=== PATIENT | male | born 1960 | race Caucasian/White ===

== ENCOUNTER → 2018-11-22 10:27 | Outpatient (CLI) | payer OTHER, SELFPAY ==
--- NOTE | 2018-11-22 | DI.RAD.S_ITS ---
PROCEDURE: XR TIBIA FUBULA RT 2V INDICATIONS: PAIN ANTERIOR PROXIMAL TIBIA-POSSIBLE OLD SHRAPNEL TECHNIQUE: 2 views of the tibia and fibula were acquired. COMPARISON: None. FINDINGS: Bones: No fractures or dislocations. No suspicious bony lesions. Soft tissues: No suspicious soft tissue calcifications or masses. IMPRESSION: No prior trauma or foreign body seen. Dictated by: Kevin Villeda M.D. on 11/22/2018 at 12:58 Approved by: Kevin Villeda M.D. on 11/22/2018 at 12:59
== END ==
PROVIDERS: PCP Family Medicine; Visit Provider Physician Assistant
DX: M79.661 Pain in right lower leg (principal)
CPT/HCPCS: 73590

== ENCOUNTER → 2021-01-20 15:01 | Outpatient (CLI) | payer BC, SELFPAY ==
[2021-01-20] MEDS: COVID-19 VACC #1, MRNA(MOD) 100 MCG/0.5 ML VIAL IM (15:09)
== END ==
PROVIDERS: PCP Student in an Organized Health Care Education/Training Program; Visit Provider Internal Medicine
DX: Z23 Encounter for immunization (principal)
CPT/HCPCS: 0011A; 91301

== ENCOUNTER → 2021-02-17 12:56 | Outpatient (CLI) | payer BC, SELFPAY ==
[2021-02-17] MEDS: COVID-19 VACC #2, MRNA(MOD) 100 MCG/0.5 ML VIAL IM (13:00)
== END ==
PROVIDERS: PCP Student in an Organized Health Care Education/Training Program; Visit Provider Internal Medicine
DX: Z23 Encounter for immunization (principal)
CPT/HCPCS: 0012A; 91301

== ENCOUNTER → 2022-12-25 13:49 | Outpatient (CLI) | payer BC, SELFPAY ==
--- NOTE | 2022-12-25 13:50 | DI.RAD.S_ITS ---
PROCEDURE: XR KNEE LT 3V INDICATIONS: Assess baseline knee status. Bilateral pain w/o trauma TECHNIQUE: 3 views of the knee were acquired. COMPARISON: None. FINDINGS: Bones: No fractures or dislocations. No suspicious bony lesions. Soft tissues: No joint effusion. No suspicious soft tissue calcifications. IMPRESSION: No acute fracture. No osseous lesion. If symptoms and/or clinical suspicion for pathology persist, further assessment with repeat, or advanced imaging (e.g., CT, MRI, or bone scan) may be helpful for further assessment. Dictated by: Madeleine Keys M.D. on 12/25/2022 at 15:09 Transcribed by: SINGH on 12/25/2022 at 15:09 Approved by: Madeleine Keys M.D. on 12/25/2022 at 16:28
--- NOTE | 2022-12-25 13:50 | DI.RAD.S_ITS ---
PROCEDURE: XR KNEE RT 3V INDICATIONS: Assess baseline knee status. Bilateral pain w/o trauma TECHNIQUE: 3 views of the knee were acquired. COMPARISON: None. FINDINGS: Bones: No fractures or dislocations. No suspicious bony lesions. Mild tricompartmental periarticular osteophyte formation. Soft tissues: No joint effusion. No suspicious soft tissue calcifications. IMPRESSION: Osteoarthritis. No acute fracture. No osseous lesion. If symptoms and/or clinical suspicion for pathology persist, further assessment with repeat, or advanced imaging (e.g., CT, MRI, or bone scan) may be helpful for further assessment. Dictated by: Madeleine Keys M.D. on 12/25/2022 at 15:09 Transcribed by: SINGH on 12/25/2022 at 15:09 Approved by: Madeleine Keys M.D. on 12/25/2022 at 16:28
== END ==
PROVIDERS: PCP Student in an Organized Health Care Education/Training Program; Referring Provider Student in an Organized Health Care Education/Training Program; Visit Provider Student in an Organized Health Care Education/Training Program
DX: M17.11 Unilateral primary osteoarthritis, right knee (principal); M25.561 Pain in right knee; M25.562 Pain in left knee
CPT/HCPCS: 73562

== ENCOUNTER 2024-04-25 12:54 | Day surgery (SDC) | payer BC, SELFPAY ==
[2024-04-25] VITALS (8 sets, daily range): BP systolic 84–119; BP diastolic 52–77; PULSE 79–88; RESP 10–16; TEMP 36.2–36.8; O2SAT 94–100
--- NOTE | 2024-04-25 | PATH_ITS ---
[facility] Accession Number: [id number] No. of containers..02 Tissue . 01 Material submitted: . PART A: colon - ASCENDING COLON MASS PART B: colon - TRANSVERSE POLYP . 01 Diagnosis: Part A: ASCENDING COLON MASS: 1. Colonic tissue with invasive adenocarcinoma, moderately differentiated. 2. No lymphovascular or perineural invasion identified. See comment. . Specimen Comments: These results were called to Dr. Santiago by Dr. Candelario on 04/28/2024 at 1115. The case has also been reviewed by Dr. Rose Simmons, who concurs with the diagnosis. . Immunohistochemical staining for markers of microsatellite instability (MSI) will be performed, and the results will be reported as an addendum. . Part B: TRANSVERSE POLYP: Tubular adenoma. [facility] 04/28/2024 1133 Local . 01 Electronically signed: . Bj Candelario MD, Pathologist NPI- [id number] . 01 Gross description: . A. Received in formalin, labeled with two identifiers and ascending colon mass, are four villalta soft tissue fragments measuring 0.4-0.8 cm in greatest dimension. Submitted intact cassette A1. . B. Received in formalin, labeled with two identifiers and transverse polyp, are two villalta soft tissue fragments measuring 0.6-1.1 cm in greatest dimension with the largest fragment bisected. Submitted entirely in cassette B1. ([id number]) /Andie 04/28/2024 1133 Local . 01 Pathologist provided ICD-10: C18.2, D12.3 . 01 CPT . 161863, 428411, N59221, F38287 Specimen Comment: A courtesy copy of this report has been sent to [phone] Performed at: [address] [facility] [address] [address] [address] [facility], [place], [place] [id number] MD Bj Candelario MD Phone: [phone]
[2024-04-25] MEDS: LACTATED RINGERS 1,000 ML 42 ML IV (13:24)
--- NOTE | 2024-04-25 13:46 | P.HP_ITS ---
History of Present Illness History of Present Illness Date Patient Seen: 04/25/24 Time Patient Seen: 13:46 [place] [facility] [place] 64-year-old man here for diagnostic colonoscopy for positive Cologuard test. No abdominal concerns today. Family history of colon cancer in his sister. 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) Smoking Status: Never smoker second hand exposure: No alcohol intake: never substance use type: does not use Meds Home Medications and Allergies Home Medications Medication Instructions Recorded Confirmed Type aspirin 81 mg tablet,delayed 81 mg PO DAILY 04/06/20 04/25/24 History release (Adult Low Dose Aspirin) ezetimibe 10 mg tablet (Zetia) 10 mg PO DAILY #90 tabs 11/15/23 04/25/24 Rx metoprolol succinate 50 mg 50 mg PO DAILY #90 tabs 11/15/23 04/25/24 Rx tablet,extended release 24 hr pitavastatin calcium 4 mg tablet 4 mg PO DAILY #90 tabs 11/15/23 04/25/24 Rx (Livalo) Allergies Allergy/AdvReac Type Severity Reaction Status Date / Time choline fenofibrate AdvReac Mild feel Verified 04/25/24 09:16 nauseated sick and low energy Exam Vital Signs (past 8 hours): - 04/25/24 13:14 Temperature 97.3 F L Pulse Rate 88 Respiratory Rate 16 Blood Pressure 113/73 Pulse Oximetry 100 Oxygen Delivery Method Room Air Oxygen Delivery Method Room Air Narrative Exam Narrative: General adult man alert oriented no acute distress Chest nonlabored respiration Extremities warm well perfused Assessment & Plan Assessment and plan (1) Positive colorectal cancer screening using Cologuard test: Status: Acute Assessment & Plan narrative: Diagnostic colonoscopy indicated. Technical details were discussed. Risks, benefits, alternatives explained. Risks including but not limited to myocardial infarction, aspiration, bleeding, pain, missed lesion, incomplete examination, need for further radiographic studies, intestinal injury, and need for major abdominal surgery were discussed. All questions were answered to their satisfaction, and they are in agreement with this plan. Time-Based Coding :: [TOTAL MINUTES] spent with patient and on the chart (including review of chart, obtaining history, exam, reviewing outside data, placing orders, documenting exam and treatment plan, and counseling patient) on [DATE].
--- NOTE | 2024-04-25 14:32 | DI.CT.S_ITS ---
PROCEDURE: CT CHEST ABD PEL W CON INDICATIONS: colonoscopy mass TECHNIQUE: After the administration of intravenous contrast, 5 mm thick sections acquired from the lung apices to the symphysis. 5 mm coronal and sagittal reformats were performed, with additional 7 mm MIP reformats through the lungs. For radiation dose reduction, the following was used: automated exposure control, adjustment of mA and/or kV according to patient size. COMPARISON: None. FINDINGS: Image quality: Excellent. CHEST: Lower Neck: No enlarged lymph nodes. Thyroid: No thyroid nodules which require sonographic follow up, per consensus guidelines. Axillae: No enlarged lymph nodes. Chest Wall: Post median sternotomy. Lungs and Pleura: No pneumothorax or pleural effusions. No consolidation or suspicious nodules. Heart: Heart size is normal. No pericardial effusion. Thoracic Vessels: The aorta and pulmonary arteries demonstrate normal size. Mediastinum and Monique: No enlarged lymph nodes. Esophagus: No wall thickening. No hiatal hernia. Asymmetric elevation of the left hemidiaphragm. ABDOMEN: Liver: No solid mass. Gallbladder: No radiopaque gallstones or wall thickening. Biliary ducts: No biliary dilation. Pancreas: No ductal dilation. Spleen: Size is within normal limits. Adrenal Glands: No adrenal nodules. Kidneys and Ureters: No hydronephrosis. No solid mass. No complex renal cystic lesion which requires follow up. Stomach and Bowel: Circumferential mass at the splenic flexure measuring approximately 6 cm in length, (3/22). No significant upstream bowel dilatation. Small pericolonic lymph nodes, (2/56). Normal appendix. No small bowel obstruction. Stomach is not distended. Peritoneum: No abnormal intraperitoneal fluid. No free air. Ventral Wall: No significant ventral hernia. Abdominal Nodes: No retroperitoneal or mesenteric adenopathy by size criteria. Vessels: Aorta and inferior vena cava are normal in size. PELVIS: Pelvic Organs: Unremarkable. Bladder: No bladder wall thickening, accounting for underdistention. Pelvic Nodes: No enlarged lymph nodes. Miscellaneous: No inguinal hernias are seen. Bones: No aggressive osseous abnormality. IMPRESSION: 1. Splenic flexure colonic mass measuring approximately 6 cm in length. 2. No bowel obstruction demonstrated. 3. Small pericolonic lymph nodes in the left upper quadrant. 4. No focal hepatic lesion. Dictated by: Shahid Hwang M.D. on 04/25/2024 at 17:25 Approved by: Shahid Hwang M.D. on 04/25/2024 at 17:34
--- NOTE | 2024-04-25 14:44 | PM.OP.COLON ---
Operative Date/Time/Diagnoses Date of procedure: 04/25/24 Time of procedure: 14:44 Pre-op diagnosis: Positive Cologuard Post-op diagnosis: other (Colon mass) Procedure & Clinicians Study performed: Diagnostic colonoscopy Same procedure as scheduled: Yes Indications: 64-year-old man no previous colonoscopy with a positive Cologuard test here for diagnostic colonoscopy. Surgeon: Jose Santiago Procedure Notes Procedure in detail: The history and physical was performed/updated and the patient is ASA class is 2. The procedure was discussed in detail with the patient. Potential risks complications including infection, bleeding, missed diagnosis, perforation, need for surgery, and were explained. Their questions were answered and informed consent was obtained. Patient was brought to the procedure room and placed standard monitoring equipment. The patient's vital signs were monitored continuously throughout the entire procedure. Prior to starting time-out was performed. The patient was placed in the left lateral recumbent position. Procedural sedation was administered by anesthesia. Examination began with a thorough inspection of the perianal area there was no evidence of fissures, fistulae, external hemorrhoids or cutaneous malignancy. The colonoscopy scope was then placed into the anal canal and was advanced forward. Within the ascending colon there was a circumferential friable near obstructing mass appearance is consistent with colonic adenocarcinoma. The lesion was tattooed and then portion of the lesion was removed using the hot snare. Unable to advance the scope successfully beyond the lesion. The scope was then slowly withdrawn. Within the transverse colon there was a 8 mm pedunculated polyp which was removed with hot snare. Specimen(s): other (Ascending colon mass, transverse colon polyp) Impression: Colon cancer Post-procedure Plan for aftercare: Discussion to follow in regards to colon cancer workup and treatment Disposition: same day surgery
[2024-04-25 15:41] LABS: Add Manual Diff / Slide Review NO; Basophils Absolute Auto 0 /uL (0-100); Basophils Percent Auto 0.8 % (0-2); Eosinophils Absolute Auto 100 /uL (0-450); Eosinophils Percent Auto 2.3 % (2-4); Hematocrit 41.1 % (41-53); Hemoglobin 14.3 g/dL (13.5-17.5); Lymphocytes Absolute Auto 1000 /uL (1100-4500); Lymphocytes Percent Auto 22.2 % (25-40); Mean Corpuscular HGB Conc 34.7 % (30-36); Mean Corpuscular Hemoglobin 31.3 PG (26-34); Mean Corpuscular Volume 90.1 fL (80-100); Monocytes Absolute Auto 400 /uL (0-900); Monocytes Percent Auto 9.5 % (3-14); Neutrophils Absolute Auto 2900 /uL (1500-7000); Neutrophils Percent Auto 65.2 % (50-75); Platelet Count 171 X10^3/uL (150-400); Red Blood Cell Count 4.57 X10^6/uL (4.5-5.9); White Blood Cell Count 4.5 X10^3/uL (4.5-11.0)
[2024-04-25 15:50] LABS: BUN Creatinine Ratio 11.3 (6-22); Blood Urea Nitrogen 9 mg/dL (9-20); Calcium 8.8 mg/dL (8.4-10.2); Carbon Dioxide 23 mmol/L (22-32); Chloride 108 mmol/L (98-107); Estimated Glomerular Filt Rate > 60 mL/min (>60); Glucose 88 mg/dL (80-110); HEMOLYSIS < 15 (0-50); Potassium 3.9 mmol/L (3.4-5.1); Sodium 138 mmol/L (137-145)
== END 2024-04-25 16:25 | disposition home or self-care (01) ==
PROVIDERS: Surgery; PCP Family Medicine; Referring Provider Surgery; Visit Provider Surgery
PROC: 0DJD8ZZ Inspection of Lower Intestinal Tract, Via Natural or Artificial Opening Endoscopic (ICD-10-PCS; CPT 45378; principal; 2024-04-25 13:45)
DX: C18.2 Malignant neoplasm of ascending colon (principal); D12.3 Benign neoplasm of transverse colon
CPT/HCPCS: 45381; 45385; 36415; 71260; 74177; 80048; 82378; 85025; J2704; Q9967

== ENCOUNTER 2024-05-07 07:12 | Inpatient (IN) | payer BC, SELFPAY ==
[2024-05-06 11:48] VITALS: BMI 29.8
[2024-05-07] VITALS (14 sets, daily range): BP systolic 93–125; BP diastolic 56–79; PULSE 78–98; RESP 10–18; TEMP 36.1–36.8; O2SAT 94–100; BMI 27.8; BMI 28.1
--- NOTE | 2024-05-07 | PATH_ITS ---
[facility] Accession Number: [id number] No. of containers..01 Tissue . 01 Material submitted: . colon - TRANSVERSE COLON . 01 Clinical history: . STITCH SANDRA PROXIMAL COLON . 01 Diagnosis: TRANSVERSE COLON, SEGMENTAL RESECTION: Invasive adenocarcinoma; see Cancer Case Summary. Additional segment of colon with focal erosion. . . CASE SUMMARY - COLON AND RECTUM - RESECTION Specimen Procedure: Transverse colectomy. Tumor Tumor site: Colon, not otherwise specified. Histologic type: Adenocarcinoma. Histologic grade: G2, moderately differentiated. Tumor size: 5.9 cm in greatest dimension. Multiple primary sites: Not applicable. Tumor extent: Invades through muscularis propria into pericolonic tissue. Macroscopic tumor perforation: Not identified. Lymphatic or vascular invasion: Not identified. Perineural invasion: Not identified. Tumor budding score: Low (0-4). Treatment effect: No known presurgical therapy. Margins Margin status for invasive carcinoma: All margins negative for invasive carcinoma. Margin status for non-invasive tumor: All margins negative for dysplasia. Regional lymph nodes Regional lymph node status: Regional lymph nodes present. All regional lymph nodes negative for tumor Number of lymph nodes with tumor: 0. Number of lymph node examined: 25. Tumor deposits: Not identified. Distant metastasis: Not applicable. pTNM classification (AJCC 8th Edition) pT category: pT3 pN category: pN0 Additional findings: None identified. Special studies: Immunohistochemical stains for DNA mismatch repair proteins performed on the prior biopsy specimen ([id number]), with intact nuclear expression of MLH-1, MSH-2, MSH-6, and PMS-2. [facility] 05/09/2024 1746 Local . 01 Electronically signed: . Luther Huber MD, PhD, Pathologist NPI- [id number] . 01 Gross description: . Received in formalin with two patient identifiers and transverse colon, are two segments of colon, the first is oriented with a suture designating proximal per the requisition, and measures 26.7 cm in length and averages 3.5 cm in diameter, with attached fat and mesentery extending out to 38.1 cm. The serosa is villalta with a acosta area of discoloration consistent with tattoo ink measuring 3.5 x 3.5 cm. A roughened area adjacent to the presumed tattoo ink measures 4.2 x 3.6 cm. The proximal margin is inked blue, the distal margin is inked black, the mesenteric margin is inked green, and the roughened area of serosa is inked orange. The lumen contains a small amount of hemorrhagic material, and a sessile lesion measures 5.9 x 5.5 x 2.1 cm, and is located 3.6 cm from the nearest distal margin. The lesion extends through the wall with minimal extension into the adjacent fat and grossly approaches the orange-inked serosa. The adjacent tattoo-inked area has no lesions identified. The remaining mucosa is villalta and velvety with no additional lesions identified and slightly attenuated folds. The david average 0.2 cm thick with no diverticula identified. . The separate unoriented segment of colon measures 11.4 cm in length by 4.2 cm in diameter with a small amount of attached fat extending out to 3.2 cm. The serosa is red-brown and smooth with no roughened areas identified. The staple lines are differentially inked green and yellow. Minimal luminal contents are identified. The mucosa is acosta-villalta and velvety with grossly attenuated folds. An area of wall is thin and translucent measuring 1.9 x 1.6 cm with no perforation or lesions identified. The david range from less than 0.1 to 0.2 cm thick. Palpation of the pericolonic fat reveals 47 villalta lymph node candidates ranging from 0.1 to 0.9 cm in greatest dimension. . Warp Tester sections are submitted as follows: A1: Oriented fragment proximal margin en face. A2: Oriented fragment distal margin en face. A3-A4: Mass deepest extension. A5: Mass to serosa. A6: Mass to normal. A7: Tattoo inked area. A8: Normal oriented section. A9: Second fragment, passenger service representative margins en face. A10: Second fragment translucent wall. A11: Normal second fragment. A12: Two differentially inked bisected lymph node candidates. A13: Two differentially inked bisected lymph node candidates. A14: Two differentially inked bisected lymph node candidates. A15: Single bisected lymph node candidate. A16: Five intact lymph node candidates. A17: Five intact lymph node candidates. A18: Four intact lymph node candidates. A19: Five intact lymph node candidates. A20: Six intact lymph node candidates. A21: Five intact lymph node candidates. A22: Six intact lymph node candidates. A23: Four intact lymph node candidates. ([id number]) /MRV 05/08/2024 1718 Local . 01 Pathologist provided ICD-10: C18.9 . 01 CPT . 634700 Specimen Comment: A courtesy copy of this report has been sent to [phone] Performed at: [address] [facility] [address], [place], [place] [id number] MD Bj Candelario MD Phone: [phone]
--- NOTE | 2024-05-07 08:16 | SUR.OPER ---
Lithotomy on padded OR bed. [place] Pad Positioner under torso. Head on pillow, arms padded and tucked at sides. Legs secured in padded yellow fins stirrups.
[2024-05-07] MEDS: LACTATED RINGERS 1,000 ML 21 ML IV ×3 (08:18→12:23)
--- NOTE | 2024-05-07 08:27 | PM.PREOP ---
Pre-operative Note Interval Note History & Physical reviewed/Exam performed by Physician: Yes Changes to H&P: No
[2024-05-07] MEDS: PIPERACILLIN/TAZO 4.5 GM in SODIUM CHLORIDE 0.9% 100 ML IV (09:05)
[2024-05-07] MEDS: BUPIVACAINE 0.25% (PF) VIAL 30 ML INJ (09:18)
[2024-05-07] MEDS: TRANEXAMIC ACID 1,000 MG VIAL 2000 MG INJ (10:38)
[2024-05-07] MEDS: PIPERACILLIN/TAZO 3.375 GM in SODIUM CHLORIDE 0.9% 100 ML IV (11:50)
--- NOTE | 2024-05-07 13:44 | P.OP_ITS ---
Operative Date/Time/Diagnoses Date of procedure: 05/07/24 Time of procedure: 13:52 Pre-op diagnosis: Colon cancer Post-op diagnosis: same Procedure & Clinicians Procedure: Laparoscopic assisted left extended hemicolectomy Open mobilization of splenic flexure Implantation of Phasix mesh for fascial reinforcement of abdominal wall Modifier 22 for extensive intra loop and intra abdominal adhesions. Same procedure as scheduled: Yes Indications: 64-year-old man found to have a large near obstructing colon cancer within his transverse colon. Staging demonstrates no evidence of metastatic disease tumor appears to be at the splenic flexure. Surgeon: Jose Santiago Laundry Equipment Operator: Long De La Garza Anesthesia Type: General Operative Notes Findings: Large tumor within the distal 1/3 of the transverse colon. Extensive intra-abdominal and interloop adhesions Negative leak test Specimen(s): other (Transverse colon. Stitch espinoza the proximal portion) Prosthetic devices, grafts, tissues, transplants, or devices: Phasix mesh 15 cm Estimated Blood Loss (mL): 300 Procedure in detail: Patient was brought to the operating room placed supine on the table. Bilateral lower extremity compression devices were applied. General anesthesia was induced and he was intubated with an endotracheal tube. He was then prepped and draped in sterile fashion and a Sultana catheter was sterilely placed. Time-out was performed. He received 4.5 g of Zosyn prior to skin incision. A infraumbilical incision was made the fascia was grasped elevated sharply incised and the abdomen was entered atraumatically. Pneumoperitoneum was established. Additional working ports were placed in the right lower quadrant right upper quadrant. General inspection of the abdomen was made, no carcinomoatosis or hepatic lesions. The descending colon was mobilized medially by incising the white line of Toldt using electrocautery. Within the left upper quadrant there were extensive adhesions near the splenic flexure. A laparoscopic adhesiolysis was performed. The gastrocolic ligament was divided entering the lesser sac, mobilizing the transverse colon inferiorly. The right colon was then mobilized medially by incising the white line of Toldt. At this point no further la paroscopic mobilization was possible and we proceeded with a upper midline incision. A self retaining retractor was placed. The hepatic flexure was mobilized. The sweep of the duodenum was identified and kept posterior out of harms way. The level of the splenic flexure was exceptionally high and there were extensive adhesions between the transverse colon to the decending colon the small bowel and the spleen. Using sharp dissection an adhesiolysis was performed. Ultimately the splenic flexture was entirely mobilized the splenocolic, splenorenal and gastrocolic ligaments all divided. The tail of the pancreas was observe and kept posterior out of harms way. The tumor was clearly identified quite palpable and marked with tattoo ink and within the distal transverse colon. We divided the transverse colon at least 5 cm from the tumor. A window within the mesentery was made and then the colon was divided using the EN stapler 75 mm blue load. The middle colic pedicle was identified and it was traced down to the superior mesenteric artery. The middle colic vessels were divided near its takeoff from the SMA. Two 0 silk sutures were used to ligate the pedicle and then it was divided using electrocautery. We continued the division of the transverse mesentery using the LigaSure. There was approximately 200 ml of venous bleeding from the transverse colon mesentery which was ultimately controlled with suture ligation. The distal colon was divided in the same fashion on the descending colon. We trimmed back the descending colon further to get a well perfused segment. Ultimately we had two well perfused ends of colon and we formed a [id number]-of-ches anastomosis functional end to end. The staple lines were excised then crotch stitch with silk suture was placed. The limbs were then joined in using a 3rd staple load. The anastomosis was widely patent without tension and well perfused. The common opening was then closed in running fashion using 3-0 PDS suture. The staple line was then imbricated using interrupted silk suture. The mesenteric defect was closed with Vicryl suture in running manner. We then performed a leak test. The anastomosis was submerged beneath saline and air was insufflated from the rectum and this demonstrated good filling of the colon no evidence of leak. The 11 mm trocar sites were closed from within the abdomen using 0 Vicryl suture in [id number]. Given the contaminated nature of the case and the length of the fascial incision he was deemed to be at significant-risk of ventral hernia formation. We therefore implanted a 15 cm piece of Phasix mesh on the anterior fasica for reinforcement of the abdominal wall. The anterior sheath was then cleared of the subcutaneous tissue and the Phasix mesh was secured using Tisseel. Subcutaneous tissue was reapproximated with Vicryl and skin closed with running Monocryl followed by Dermabond. Sponge and instrument count was correct. Bilateral TAP block was performed by anesthesia. Patient was extubated and was transferred to recovery room in stable condition. Complications: none Post-operative Condition: stable Disposition: Acute Care
[2024-05-07] MEDS: DEXTROSE 5%-0.45% NS 1,000 ML 100 ML IV ×2 (14:53→23:47)
--- NOTE | 2024-05-07 15:30 | PT.IIE ---
Current Diagnoses Malignant neoplasm of colon, unspecified (05/07/24) Surgery Performed Operation Date: 05/07/24 08:45 Actual Procedures p Laparoscopic Colectomy CONVERTED TO OPEN COLECTOMY - Jose Santiago MD Surgical History (Last Updated 05/06/24 @ 11:58 by Lilli Hunt RN) History of breast surgery History of three vessel coronary artery bypass (~1997) Hx of colonoscopy (04/25/24) Hx of left mastectomy (1979) Hx of vasectomy (1996) Medical History (Last Reviewed 04/25/24 @ 13:47 by Jose Santiago MD) Coronary artery disease (1997) Migraines (Unknown) Myocardial infarction (~1997) Physical Therapy Inpatient Evaluation/Re-Eval M1 PT/OT-IP Prior Functional Status Start: 05/07/24 16:41 Freq: NEEDED Status: Active Protocol: Document 05/07/24 15:30 AB (Rec: 05/07/24 17:09 [id number]) Medical Review Prior Functional Status Medical History Reviewed Yes Communication able to make needs known Mobility and Gait pt stated that he is independent with all mobilities and ambulation without AD Social History Household Members spouse,children Living Arrangements House Number of Floors (Floors) Two Floors Number of Stairs To Enter/Railing? 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 M2 PT-IP Current Condition Start: 05/07/24 16:41 Freq: NEEDED Status: Active Protocol: Document 05/07/24 15:30 AB (Rec: 05/07/24 17:09 AB [id number]) Physical Therapy Current Condition Current Condition Evaluation Date 05/07/24 Treatment Diagnosis colon CA s/p hemicolectomy; difficulty in walking Onset Date 05/07/24 M3 PT-IP Subjective Start: 05/07/24 16:41 Freq: NEEDED Status: Active Protocol: Document 05/07/24 15:30 AB (Rec: 05/07/24 17:09 AB [id number]) Subjective Physical Therapy Visit Type Type Re-Evaluation Visit Start Time 15:30 Visit Stop Time 16:15 Number of SYRUP 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 HELPER Visits 0 Physical Therapy Visit Comments Patient Comments agreeable to do PT Therapy Pain Assessment Pain When Pain Assessed At Rest Pain Present Pain Present Pain Reported Location Abdomen Intensity 4 Scale Used Numeric (0 - 10) Pain Management Techniques Distraction,Modification of Treatment,Re-positioning, Timing of Activity with Medications M4 PT-IP Mobility and Gait Start: 05/07/24 16:41 Freq: NEEDED Status: Active Protocol: Document 05/07/24 15:30 AB (Rec: 05/07/24 17:09 AB [id number]) PT-Bed Mobility Assessment Rolling Type of Rolling Log Rolling Level of Assist Contact Guard Assistance Supine to Sit Supine to Sit Contact Guard Assistance Sit to Supine Sit to Supine Contact Guard Assistance PT-Transfer Assessment Sit to and From Stand Sit to and from Stand Minimal Assistance,1 Person Assistance,Use of Upper Extremities Equipment Transfer Assistive Device Gait Belt,Front Wheeled Walker Orthotic/Prosthetic Devices or Brace: No Comments Mobility Comments pt supine in bed and agreeable to do PT. spouse in room with pt. obtained PLOF and home set up from pt. post-op handout provided to pt and educated on abdominal precautions and log roll bed mobility. BP in supine: 109/ 69 O2 sat with .5 O2 supplement: 97 % at RA 97% AZ: 78. pt completed log roll supine to sit CGA and cues. able to sit on EOb SBA. BP checked: 124/72. no c/o dizziness/ lightheadedness/nausea. pt completed sit to stand min A and ambulated in room ~ 20 ft using FWW min A and cues. presents with slow paced gait with decrease LE elevation and stride and with increase UE use on FWW. pt with c/o nausea towards the end of ambulation and pt instructed to walk to the EOB and towards HOB. pt sat on the bed. c/o increase nausea. BP checked: 85/56. call light pushed to alert nurse. pt completed sit to supine CGA and cues. positioned pt on the bed. BP rechecked: 98/64. NAC came in after ~ 5 min and informed to let the nurse know that pt is orthostatic. Rechecked pt's BP after ~ 2 min: 97/63. call light and table placed within reach. left pt with nurse. informed spouse to try to borrow a FWW for pt. spouse understood and agreed and will borrow one from [employer]. Gait Assessment Gait Gait Assistance Required: Minimum Assistance Distance (Feet) 20 Able to Maintain Weight Bearing Status Yes During Gait Assistive Devices Assistive Device Gait Belt,Front Wheeled Walker Orthotic/Prosthetic Devices or Brace: No Gait Deviations General Gait Pattern Decreased Stride Length, Decreased Feet Clearance Factors Limiting Gait Function Factors Limiting Gait Function Decreased Activity Tolerance, Decreased Strength,Difficulty Following Directions,Limited Range of Motion,Pain,Poor Balance,Poor Safety Awareness PT-Balance Assessment Sitting Balance and Reactions Static Sitting Balance Ability Good Dynamic Sitting Balance Ability Good Standing Balance and Reactions Static Standing Balance Ability Fair Dynamic Standing Balance Ability Fair Device Used FWW M5 PT-IP Objective Assessments Start: 05/07/24 16:41 Freq: NEEDED Status: Active Protocol: Document 05/07/24 15:30 AB (Rec: 05/07/24 17:09 AB [id number]) Orientation Orientation/Cognition Level of Alertness Alert Orientation Name,Situation Safety Awareness Decreased Safety Awareness Memory Description No Deficits Noted Gross Range of Motion Lower Extremity ROM Assessment Within Functional Limits Strength Lower Extremity Strength Assessment Within Functional Limits Sensation Assessment Sensation Gross Sensation WNL Muscle Tone Muscle Tone WNL Yes M6 PT-IP Treatment Start: 05/07/24 16:41 Freq: NEEDED Status: Active Protocol: Document 05/07/24 15:30 AB (Rec: 05/07/24 17:09 AB [id number]) Physical Therapy Treatment Education Education Provided Precautions,Weight Bearing Status,Post-Op Packet,Safety M7 PT-IP Assessment and Plan Start: 05/07/24 16:41 Freq: NEEDED Status: Active Protocol: Document 05/07/24 15:30 AB (Rec: 05/07/24 17:09 AB [id number]) PT Summary Assessment and Plan Potential Rehabilitation Potential Fair Status of Condition at Evaluation Evolving Summary Impairments Pain,ROM,Strength,Balance, Coordination,Sensation,Tone, Cognition,Bed Mobility, Transfers,Gait,Activity Tolerance Assessment Summary pt is a 64 y/o M with colon CA and underwent hemicolectomy POD 0. pt has abdominal precautions. pt needing min A with mobility using FWW and has decrease activity tolerance at this time with decrease in BP after ambulation. pt plans to go home and spouse to assist him. maverick conduct caregiver training when appropriate. will continue to assess. Goals Bed Mobility Goal Independent Transfer Goal Independent,Front Wheeled Walker Gait Goal Independent,Front Wheel Walker Gait Distance 200 Other Goals improve transfers/ambulation using LRAD/ without AD ~ 300 ft mod I up/down 1 step FWW/without AD mod I up/down 13 steps L rail descendind mod I. Days to Meet Goals 10 Frequency of Treatment Frequency Of Treatment Once a Day Treatment Plan Physical Therapy Treatment Plan Bed Mobility Training,Transfer Training,Gait Training, Therapeutic Exercise,Balance Retraining,Post Op Education, Discharge Planning,Hot or Cold Pack,Neuromuscular Re-ed, Coordination Retraining,Manual Therapy Precautions Abdominal Surgery Precautions Log Roll,Lifting Restrictions, Gait Belt above Incisional Area Recommendations To Nursing Amount of Assist Needed 1 Person Assist Discharge Recommendations PT Discharge Recommendations Home with 14/05 Assist Available,Home Health Equipment Needed for Home Before FWW Discharge Transportation Needs at Discharge Private Vehicle,Wheelchair/ Cabulance
--- NOTE | 2024-05-07 16:17 | OT.IPNOTE ---
Checked on pt for OT eval. Pt just finished doing PT eval and wanting to do OT eval tomorrow as too tired.
[2024-05-07] MEDS: OXYCODONE IR 5 MG TABLET PO (18:15)
[2024-05-07] MEDS: CELECOXIB 200 MG CAPSULE PO (20:13)
[2024-05-08] VITALS (16 sets, daily range): BP systolic 100–130; BP diastolic 63–76; PULSE 77–103; RESP 16–18; TEMP 36.4–37; O2SAT 93–99
[2024-05-08] MEDS: OXYCODONE IR 5 MG TABLET PO ×5 (02:00→21:45)
[2024-05-08] MEDS: ACETAMINOPHEN 325 MG TABLET 1000 MG PO (02:01)
[2024-05-08 06:38] LABS: Add Manual Diff / Slide Review NO; Basophils Absolute Auto 0 /uL (0-100); Eosinophils Absolute Auto 0 /uL (0-450); Lymphocytes Absolute Auto 600 /uL (1100-4500); Lymphocytes Percent Auto 4.5 % (25-40); Mean Corpuscular HGB Conc 34.2 % (30-36); Mean Corpuscular Volume 90.7 fL (80-100); Monocytes Absolute Auto 1100 /uL (0-900); Monocytes Percent Auto 8.1 % (3-14); Neutrophils Absolute Auto 11900 /uL (1500-7000); Neutrophils Percent Auto 87.4 % (50-75); Platelet Count 170 X10^3/uL (150-400); Red Blood Cell Count 3.85 X10^6/uL (4.5-5.9); Red Cell Distribution Width 13.9 % (11.6-14.8); White Blood Cell Count 13.7 X10^3/uL (4.5-11.0)
[2024-05-08] MEDS: SODIUM CHLORIDE 0.9% FLUSH 10 ML IV ×3 (06:38→21:45)
[2024-05-08] MEDS: HYDROMORPHONE 0.5 MG INJ IV (06:39)
[2024-05-08 06:40] LABS: BUN Creatinine Ratio 11.6 (6-22); Blood Urea Nitrogen 8 mg/dL (9-20); Calcium 8.2 mg/dL (8.4-10.2); Carbon Dioxide 20 mmol/L (22-32); Chloride 109 mmol/L (98-107); Estimated Glomerular Filt Rate > 60 mL/min (>60); Glucose 204 mg/dL (80-110); HEMOLYSIS 26 (0-50); Potassium 4.3 mmol/L (3.4-5.1); Sodium 133 mmol/L (137-145)
--- NOTE | 2024-05-08 08:50 | PT.IPTN ---
Current Diagnoses Malignant neoplasm of colon, unspecified (05/07/24) Surgery Performed Operation Date: 05/07/24 08:45 Actual Procedures p Laparoscopic Colectomy CONVERTED TO OPEN COLECTOMY - Jose Santiago MD Physical Therapy Treatment Note M2 PT-IP Current Condition Start: 05/07/24 16:41 Freq: NEEDED Status: Active Protocol: Document 05/07/24 15:30 AB (Rec: 05/07/24 17:09 AB [id number]) Physical Therapy Current Condition Current Condition Evaluation Date 05/07/24 Treatment Diagnosis colon CA s/p hemicolectomy; difficulty in walking Onset Date 05/07/24 M3 PT-IP Subjective Start: 05/07/24 16:41 Freq: NEEDED Status: Active Protocol: Document 05/08/24 09:24 TS (Rec: 05/08/24 09:39 TS [id number]) Subjective Physical Therapy Visit Type Type Treatment Note Visit Start Time 08:50 Visit Stop Time 09:20 Notes Spouse present Number of RECORDAK OPERATOR Visits 1 Physical Therapy Visit Comments Patient Comments Pt found resting in bed, reports pain is 3/10 in bed, has no nausea, is agreeable to PT. Therapy Pain Assessment Pain When Pain Assessed At Rest Pain Present Pain Present Pain Reported Location Abdomen Intensity 3 Scale Used Numeric (0 - 10) Pain Management Techniques Distraction,Modification of Treatment,Re-positioning, Timing of Activity with Medications M4 PT-IP Mobility and Gait Start: 05/07/24 16:41 Freq: NEEDED Status: Active Protocol: Document 05/08/24 09:24 TS (Rec: 05/08/24 09:39 TS [id number]) PT-Bed Mobility Assessment Rolling Level of Assist Standby Assistance Supine to Sit Supine to Sit Standby Assistance Sit to Supine Sit to Supine Minimal Assistance Scooting Scooting to Edge of Bed Minimal Assistance PT-Transfer Assessment Sit to and From Stand Sit to and from Stand Minimal Assistance,1 Person Assistance,Use of Upper Extremities Equipment Transfer Assistive Device Gait Belt,Front Wheeled Walker Orthotic/Prosthetic Devices or Brace: No Comments Mobility Comments Bp in supine 112/62. Supine to sit SBA with HOB elevated 60D . Pt sat EOB ~3mins, BP 107/71 , pt denied dizziness. STS with FWW SBA, pt has good standing balance. BP in standing 89/60, pt continues to deny dizziness. He ambulated ~25'SBA with FWW with a slow step thru gait. Sit to supine into bed Karen for LE's and with HOB elevated 60D. Pt was left in bed, all needs met. Gait Assessment Gait Gait Assistance Required: Standby Assistance Distance (Feet) 25 Able to Maintain Weight Bearing Status Yes During Gait Assistive Devices Assistive Device Gait Belt,Front Wheeled Walker Gait Deviations General Gait Pattern Decreased Stride Length, Decreased Feet Clearance Factors Limiting Gait Function Factors Limiting Gait Function Decreased Activity Tolerance, Decreased Strength,Difficulty Following Directions,Limited Range of Motion,Pain,Poor Balance,Poor Safety Awareness Comments Gait Comments See mobility comments PT-Balance Assessment Sitting Balance and Reactions Static Sitting Balance Ability Good Dynamic Sitting Balance Ability Good Standing Balance and Reactions Static Standing Balance Ability Fair Dynamic Standing Balance Ability Fair Device Used FWW M5 PT-IP Objective Assessments Start: 05/07/24 16:41 Freq: NEEDED Status: Active Protocol: Document 05/07/24 15:30 AB (Rec: 05/07/24 17:09 AB [id number]) Orientation Orientation/Cognition Level of Alertness Alert Orientation Name,Situation Safety Awareness Decreased Safety Awareness Memory Description No Deficits Noted Gross Range of Motion Lower Extremity ROM Assessment Within Functional Limits Strength Lower Extremity Strength Assessment Within Functional Limits Sensation Assessment Sensation Gross Sensation WNL Muscle Tone Muscle Tone WNL Yes M6 PT-IP Treatment Start: 05/07/24 16:41 Freq: NEEDED Status: Active Protocol: Document 05/08/24 09:24 TS (Rec: 05/08/24 09:39 TS [id number]) Physical Therapy Treatment Education Education Provided Precautions,Weight Bearing Status,Post-Op Packet,Safety M7 PT-IP Assessment and Plan Start: 05/07/24 16:41 Freq: NEEDED Status: Active Protocol: Document 05/08/24 09:24 TS (Rec: 05/08/24 09:39 TS [id number]) PT Summary Assessment and Plan Potential Rehabilitation Potential Fair Summary Impairments Pain,ROM,Strength,Balance, Coordination,Sensation,Tone, Cognition,Bed Mobility, Transfers,Gait,Activity Tolerance Progress Towards Goals Progressing Toward Goals Assessment Summary Ivania is making some progress with his mobility. He requires Karen for LE's into bed, SBA for other bed mobility with HOB elevated. He progressed his gait to SBA ~ 25' with FWW. He continues to be orthostatic but denies symptoms. He had no nausea and pain was more tolerable. PT is recommending home with 24/7 assist. Goals Bed Mobility Goal Independent Transfer Goal Independent,Front Wheeled Walker Gait Goal Independent,Front Wheel Walker Gait Distance 200 Other Goals improve transfers/ambulation using LRAD/ without AD ~ 300 ft mod I up/down 1 step FWW/without AD mod I up/down 13 steps L rail descendind mod I. Days to Meet Goals 10 Frequency of Treatment Frequency Of Treatment Once a Day Treatment Plan Physical Therapy Treatment Plan Bed Mobility Training,Transfer Training,Gait Training, Therapeutic Exercise,Balance Retraining,Post Op Education, Discharge Planning,Hot or Cold Pack,Neuromuscular Re-ed, Coordination Retraining,Manual Therapy Precautions Abdominal Surgery Precautions Log Roll,Lifting Restrictions, Gait Belt above Incisional Area Recommendations To Nursing Amount of Assist Needed 1 Person Assist Discharge Recommendations PT Discharge Recommendations Home with 24/7 Assist Available,Home Health Equipment Needed for Home Before FWW Discharge Transportation Needs at Discharge Private Vehicle
[2024-05-08] MEDS: DOCUSATE 100 MG CAPSULE PO ×2 (08:56→21:45)
[2024-05-08] MEDS: CELECOXIB 200 MG CAPSULE PO ×2 (08:56→21:45)
[2024-05-08] MEDS: ENOXAPARIN 40 MG/0.4 ML SYRINGE SUBCUT (08:56)
--- NOTE | 2024-05-08 09:18 | P.PN_ITS ---
Subjective Subjective Date Patient Seen: 05/08/24 Time Patient Seen: 09:18 Interval history: No acute overnight events. Mobilizing with physical therapy. Increased incisional pain. Tolerating full liquid diet. Exam Vital Signs (past 8 hours): - 05/08/24 02:00 05/08/24 05:00 05/08/24 06:00 Temperature 98 F 97.9 F Pulse Rate 97 H 86 Respiratory Rate 18 18 Blood Pressure 105/64 109/69 Pulse Oximetry 97 96 93 Oxygen Delivery Method Oximask Oxygen Flow Rate 2 2 Fraction of Inspired Oxygen 05/08/24 08:00 05/08/24 08:18 Temperature 97.7 F Pulse Rate 93 H Respiratory Rate 16 Blood Pressure 106/63 Pulse Oximetry 94 96 Oxygen Delivery Method Nasal Cannula Oxygen Flow Rate 0 2 Fraction of Inspired Oxygen 28 Fraction of Inspired Oxygen 28 SaO2/FiO2 Ratio 342 Oxygen Delivery Method Nasal Cannula Oxygen Flow Rate 2 Narrative Exam Narrative: General adult man alert oriented no acute distress Chest nonlabored respiration Objective Labs 05/08/24 05:46 05/08/24 05:46 Labs: Laboratory Results - last 24 hr 05/08/24 05:46 WBC 13.7 H RBC 3.85 L Hgb 12.0 L Hct 35.0 L MCV 90.7 MCH 31.0 MCHC 34.2 RDW 13.9 Plt Count 170 Neut % (Auto) 87.4 H Lymph % (Auto) 4.5 L [place] % (Auto) 8.1 Eos % (Auto) 0.0 L Baso % (Auto) 0.0 Neut # (Auto) 84825 H Lymph # (Auto) 600 L [place] # (Auto) 1100 H Eos # (Auto) 0 Baso # (Auto) 0 Sodium 133 L Potassium 4.3 Chloride 109 H Carbon Dioxide 20 L BUN 8 L Creatinine 0.69 Estimated GFR > 60 BUN/Creatinine Ratio 11.6 Glucose 204 H Calcium 8.2 L PFSH Medical History (Updated 05/06/24 @ 16:14 by Jose Santiago MD) Migraines (Unknown) Coronary artery disease (1997) Myocardial infarction (~1997) Surgical History (Updated 05/06/24 @ 11:58 by Lilli Hunt RN) Hx of colonoscopy (04/25/24) Hx of left mastectomy (1979) History of breast surgery Hx of vasectomy (1996) History of three vessel coronary artery bypass (~1997) Family History Father Stroke Myocardial infarction Mother Alzheimer's disease Sister Diabetes mellitus Sister Diabetes mellitus Sister Diabetes mellitus Grandmother Alzheimer's disease Grandmother Alzheimer's disease Social History household members: spouse and children 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
[2024-05-08] MEDS: METOPROLOL ER 50 MG TABLET 25 MG PO (09:37)
--- NOTE | 2024-05-08 11:05 | OT.IP.EVAL ---
Current Diagnoses Malignant neoplasm of colon, unspecified (05/07/24) Surgery Performed Operation Date: 05/07/24 08:45 Actual Procedures p Laparoscopic Colectomy CONVERTED TO OPEN COLECTOMY - Jose Santiago MD Past Medical History (Last Reviewed 04/25/24 @ 13:47 by Jose Santiago MD) Coronary artery disease (1997) Migraines (Unknown) Myocardial infarction (~1997) Surgical History (Last Updated 05/06/24 @ 11:58 by Lilli Hunt RN) History of breast surgery History of three vessel coronary artery bypass (~1997) Hx of colonoscopy (04/25/24) Hx of left mastectomy (1979) Hx of vasectomy (1996) Occupational Therapy Inpatient Evaluation/Re-Eval M1 PT/OT-IP Prior Functional Status Start: 05/07/24 16:41 Freq: NEEDED Status: Active Protocol: Document 05/08/24 13:04 CGR (Rec: 05/08/24 13:23 CGR [id number]) Medical Review Prior Functional Status Medical History Reviewed Yes Communication able to make needs known Mobility and Gait pt stated that he is independent with all mobilities and ambulation without AD Activities of Daily Living and IADL's Pt states he is IND in all ADLS Social History Household Members spouse,children Living Arrangements House Number of Floors (Floors) Two Floors Number of Stairs To Enter/Railing? 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 OT-IP Current Condition Start: 05/08/24 13:03 Freq: Status: Active Protocol: Document 05/08/24 13:04 CGR (Rec: 05/08/24 13:23 CGR [id number]) Occupational Therapy Current Condition Current Condition Evaluation Date 05/08/24 Treatment Diagnosis colon cancer, s/p colectomy Diagnosis Onset Date 05/07/24 Post Operative Precautions Abdominal Surgery Precautions Log Roll,Lifting Restrictions, Gait Belt above Incisional Area M3 OT- IP Subjective and Pain Start: 05/08/24 13:03 Freq: Status: Active Protocol: Document 05/08/24 13:04 CGR (Rec: 05/08/24 13:23 CGR [id number]) OT- Subjective Occupational Therapy Visit Type Type Initial Evaluation Visit Start Time 10:24 Visit Stop Time 11:05 Notes Pt's present for part of session. OT Pain Assessment Pain When Pain Assessed During Mobility Pain Present Pain Present Pain Reported Location Abdomen Intensity 3 Scale Used Numeric (0 - 10) Pain Behaviors Guarding Management Techniques Distraction,Modification of Treatment,Re-positioning, Timing of Activity with Medications M4 OT- IP ADL's Start: 05/08/24 13:03 Freq: Status: Active Protocol: Document 05/08/24 13:04 CGR (Rec: 05/08/24 13:23 CGR [id number]) OT [id number] General Evaluation Self-Feeding Ability Independent Areas Needing Assistance Drinking From Cup/Glass Comments OT Self-Feeding Comments pt on clear liquids OT ADL-Grooming General Evaluation Grooming Ability Independent Areas Needing Assistance Retrieving/Set-up of Grooming Items,Face Washing Comments OT Grooming Comments seated in chair. OT ADL-Oral Care General Eval Oral Care Ability Independent Areas of Assistance Brushing Teeth,Retrieving/Set- Up of Items Comments Oral Care Comments seated in chair OT ADL-Dressing Comments OT Dressing Comments declined to perform with OT, states that his will assist as needed. OT ADL-Toileting Comments OT Toileting Comments Not performed but discussed pt 's concerns with not having the need to urinate yet after the removal of the vargas . OT ADL-Bathing Comments OT Bathing Comments not performed M5 OT- IP IADL's Start: 05/08/24 13:03 Freq: Status: Active Protocol: Document 05/08/24 13:04 CGR (Rec: 05/08/24 13:23 CGR [id number]) OT-Instrumental Activities of Daily Living Deficits IADL Deficits Identified No Deficits Home Safety Awareness Awareness of Need for Assistance at Home Good Awareness Ability to Problem Solve Emergency Able to Problem Solve Situations Medication Management Medication Management No Deficits Identified Money Management Money Management No Deficits Identified Meal Preparation Meal Preparation Caregiver Provides Assist Roll Finisher Roll Finisher Caregiver Provides Assist Driving Driving Comments Pt was an active ambulette driver at baseline. M6 OT- IP Functional Cognition Start: 05/08/24 13:03 Freq: Status: Active Protocol: Document 05/08/24 13:04 CGR (Rec: 05/08/24 13:23 CGR [id number]) Cognitive Factors Limiting Selfcare Function Cognitive Ability Level of Alertness Alert Patient Orientation Name,Age,Birthday,Month,Date, Year,Day of Week,Place, Situation Attention Span Ability Capable of Focused Attention, Capable of Sustained Attention OT- Vision and Hearing OT- Hearing Assessment OT- Hearing Assessment WFL OT- Vision Assessment Visual Acuity Glasses All The Time,Glasses For Reading Visual Attentiveness WFL Occular Pursuits WFL Visual Convergence WFL M7 OT- IP Mobility and Balance Start: 05/08/24 13:03 Freq: Status: Active Protocol: Document 05/08/24 13:04 CGR (Rec: 05/08/24 13:23 CGR [id number]) OT- Bed Mobility Assessment Rolling Type of Rolling Log Rolling,Roll to Left Level of Assistance Standby Assistance Supine to Sit Supine to Sit Assist Standby Assistance Scooting Scooting to Edge of Bed Independent OT-Transfer Assessment Sit to and From Stand Sit to and from Stand Standby Assistance Transfers Transfer Ability Standby Assistance Technique Transfer Destination Bed,Chair Transfer Technique Stand Step Pivot Devices Transfer Assistive Devices Gait Belt,Front Wheeled Walker Comments Mobility Comments BP increased from 115 systolic to 122 systolic with sitting EOB to sittign in chair. Limited mobility today d/t severely orthostatic with P.T. this am. OT- Gait Assessment Comments Gait Ability Comments Limited mobility today d/t severely orthostatic with P.T. this am. OT- Balance Assessment Sitting Balance and Reactions Static Sitting Balance Ability Good Dynamic Sitting Balance Ability Good M8 OT- IP Objective Assessments Start: 05/08/24 13:03 Freq: Status: Active Protocol: Document 05/08/24 13:04 CGR (Rec: 05/08/24 13:23 CGR [id number]) OT Gross Range of Motion Upper Extremity Range of Motion Assessment Within Functional Limits OT Strength Upper Extremity Strength Assessment Within Functional Limits Comments Strength Comments 5/5 throughout, shlds not fully tested d/t abdominal precautions. OT- Coordination Assessment Upper Extremity Finger to Nose Test Within Functional Limits Finger Tapping Test Within Functional Limits OT-Muscle Tone Assessment Muscle Tone WNL Yes OT Sensation Assessment Edema Edema Absent M9 OT- IP Assessment and Plan Start: 05/08/24 13:03 Freq: Status: Active Protocol: Document 05/08/24 13:04 CGR (Rec: 05/08/24 13:23 CGR [id number]) OT Summary Assessment and Plan Potential Rehabilitation Potential Excellent Analytic Complexity at Evaluation Low Summary OT Impairments Pain,Functional Mobility, Grooming,Dressing,Toileting, Bathing,Toilet Transfers, Shower Transfers Progress Towards Goals Progressing Toward Goals Assessment Summary Pt presents as a low complexity evaluation s/p admit for colectomy. Pt with orthostatic hypotention this AM so mobility was limited in todays session although BP improved with limited movement with OT. Pt transferred over to the chair and performed limited ADLs seated in chair. Pt was educated on abdominal precautions and rationale for them and discussed home set up for safety. Pt is likely to be ready for d/c home when medically stable without orthostaic hypotension with family support. Goals Grooming Goal Independent Dressing Goal Independent Toileting Goal Independent Bathing Goal Independent Toilet Transfer Goal Independent Shower Transfer Goal Independent Days to Meet Goals 3 Frequency of Treatment Frequency Of Treatment Once a Day Treatment Plan OT Treatment Plan ADL Training,Functional Mobility,Patient/Family Education,Discharge Planning Other Treatment Recommendations and Next Shower, bathroom activites Treatment Focus Discharge Recommendations OT Discharge Recommendations Home with Assistance Home Equipment Needs RAMESH HUERTA in the shower Transportation Needs at Discharge Private Vehicle
--- NOTE | 2024-05-08 12:28 | CM.DANOTE ---
Patient is a 64 yo male who was admitted INPT Status on 05/07/24 for Lap hemicolectomy for near obstructing colon tumor. Pt has [employer] for insurance and his PCP is Keturah Souza. EMR was reviewed. Per Surgeon, pt tolerated procedure well and pain seems controlled and to work with therapies today for possible d/c home today vs tomorrow. Per PT/OT, pt made improvements and some bp issues but recommending home with assist and now likely would not need/qualify for HH. SW met bedside briefly with pt and explained role and he confirms he lives in [place] with his and family and is active and independent at baseline and does not use DME for ambulation and still drives. 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 Pt confirms that spouse is picking up a loaner FWW for increased assist at home while he is healing. Pt does not anticipate any further discharge planning needs at this time and spouse plans to provide transport at d/c. OLIVERIO Walker Discharge Planning/Care Management CM Discharge Assessment Start: 05/08/24 12:27 Freq: Status: Active Protocol: Document 05/08/24 12:27 BF (Rec: 05/08/24 12:28 BF [id number]) Discharge Planning Assessment Assigned Pharmacy Cashier OLIVERIO Galvez DPOA/Assigned Designee Name spouse Severino Advance Directives? No Advance Directives on File No History Provided By Patient,Medical Record Has Patient been admitted in last 30 No days? Prior Living Arrangements House Household Members spouse,children Type of transporation used prior to Drives own vehicle admit Independent with ADL's Yes Is patient alert and oriented? Yes Caregiver for Another No DME Already Rented / Owned FWW / Walker Comment spouse picking up a walker for discharge Barriers to Discharge No Discharge Plan Home Transportation Arrangement spouse Referrals Initiated None needed Whiteboard Updated in Patient Room with Yes name and ext. # of Pharmacy Cashier Review Status In Process Please Provide Date Initial DC 05/08/24 Assessment Was Performed Next Review Type Continued Stay Review Pre-Anesthesia Assessment Start: 05/06/24 11:48 Freq: Status: Complete Protocol: Document 05/06/24 11:48 CAB (Rec: 05/06/24 12:33 CAB [id number]) Pre-Anesthesia Assessment Patient Information Reviewed Via Phone Assessment Assessment Completed With Patient Primary Care Provider Keturah Souza Seen Specialist in Last 12 Months Yes Specialist Seen General surgeon Primary Language Nigerian Management Analyst Required No Height 167.64 cm Weight 83.915 kg Body Mass Index (BMI) 29.8 Hearing Ability Normal Visual Assist Glasses Dentition Type Teeth, Natural Present Barriers to Learning None Hx Anesthesia Reactions No Hx Family Anesthesia Reaction No Hx Malignant Hyperthermia No Hx Blood Transfusions No Hx Blood Transfusion Reaction No Anesthesia Review Requested No Special Education Paraprofessional No alcohol intake never Smoking Status Never smoker Substance Use Type does not use History of Falling (Recent or History of No ) Patient is completely paralyzed or No completely immobile Mental Status Oriented to own ability Is patient on oxygen? No Does patient have CRISTINA/SOB No Hx Sleep Apnea No CPAP/BIPAP use not prescribed Currently Taking a Beta Ramona Yes: Metoprolol Can You Climb a Flight of Stairs Without No SOB Hx Chest Pain Yes: Related to [facility] , nothing since Hx SOB No Hx Syncope or Dizziness No Anti-Coagulant Therapy No Has a Clinical Laboratory Medical Director Yes: Last visit 2017-has not followed up since Clinical Laboratory Medical Director name Dr. Escobar Cardiac Testing No Hx Pacemaker/ICD No Pacemaker Rep Required? No Cardiac Clearance Received No Diet Type At Home Regular Gastrointestinal Symptoms Abdominal Pain Bladder Pattern Nocturia Urinary Catheter Present No Hx Urinary Self Catheterization No Diabetes No Hx Drug Resistant Organism No Presence of External or Internal Medical No Devices Marital Status Lives With spouse Current Living Arrangements House Number of Floors (Floors) Two Floors Support System Spouse Does the Patient Have Assistance After Yes Surgery Patient Discharge Plan Description Return Home Comment Pt advised sat Feels Safe in Current Environment Yes Been Physically Hurt or Threatened By a No Person in Current Environment Do you have thoughts of harming yourself None or others? Are you currently considering suicide? No Do you have a plan to hurt yourself or No Plan others? Do You Have Any Spiritual Beliefs That No May Affect Your HC Choices? Do You Have Any Cultural Practices That No May Affect Your HC Choices? Comment Restorationist Who Can We Speak to About Patient's Care Family, friends Identifying Code for Release of Patient Declines to issue Information Health Care Proxy/Next of Kin severino () Health Care Proxy Emergency Contact Name severino () Emergency Contact Advance Directives? No Power of Slitter Cut Off Operator No PAC Instructions No ETOH/petroleum product on skin DOS,NPO,Sturdy shoes/ comfortable clothes,Do not bring valuables and remove jewelry
[2024-05-08] MEDS: ONDANSETRON 4 MG/2 ML INJ IV (13:07)
[2024-05-08] MEDS: SIMETHICONE 80 MG TABLET PO (21:45)
[2024-05-09] VITALS (12 sets, daily range): BP systolic 99–125; BP diastolic 61–70; PULSE 85–95; RESP 16–18; TEMP 36.5–36.9; O2SAT 92–99
[2024-05-09] MEDS: HYDROMORPHONE 0.5 MG INJ IV ×2 (00:11→14:39)
[2024-05-09] MEDS: SODIUM CHLORIDE 0.9% FLUSH 10 ML IV ×3 (00:12→20:25)
[2024-05-09] MEDS: OXYCODONE IR 5 MG TABLET PO ×3 (03:11→16:57)
[2024-05-09 07:00] LABS: Add Manual Diff / Slide Review NO; Basophils Absolute Auto 0 /uL (0-100); Basophils Percent Auto 0.1 % (0-2); Eosinophils Absolute Auto 0 /uL (0-450); Eosinophils Percent Auto 0.1 % (2-4); Hematocrit 30.9 % (41-53); Hemoglobin 10.7 g/dL (13.5-17.5); Lymphocytes Absolute Auto 1000 /uL (1100-4500); Lymphocytes Percent Auto 8.1 % (25-40); Mean Corpuscular HGB Conc 34.7 % (30-36); Mean Corpuscular Volume 89.4 fL (80-100); Monocytes Absolute Auto 900 /uL (0-900); Monocytes Percent Auto 7.4 % (3-14); Neutrophils Absolute Auto 10700 /uL (1500-7000); Neutrophils Percent Auto 84.3 % (50-75); Platelet Count 183 X10^3/uL (150-400); Red Blood Cell Count 3.46 X10^6/uL (4.5-5.9); Red Cell Distribution Width 14.4 % (11.6-14.8); White Blood Cell Count 12.7 X10^3/uL (4.5-11.0)
[2024-05-09 07:13] LABS: BUN Creatinine Ratio 16.3 (6-22); Blood Urea Nitrogen 13 mg/dL (9-20); Calcium 8.3 mg/dL (8.4-10.2); Carbon Dioxide 25 mmol/L (22-32); Chloride 106 mmol/L (98-107); Estimated Glomerular Filt Rate > 60 mL/min (>60); Glucose 106 mg/dL (80-110); HEMOLYSIS < 15 (0-50); Potassium 3.8 mmol/L (3.4-5.1); Sodium 136 mmol/L (137-145)
--- NOTE | 2024-05-09 08:56 | OT.IPNOTE ---
Pt states has no OT needs at this time and that his to assist, therefore discharge pt from OT services.
[2024-05-09] MEDS: CELECOXIB 200 MG CAPSULE PO ×2 (09:47→20:25)
[2024-05-09] MEDS: METOPROLOL ER 50 MG TABLET 25 MG PO (09:47)
[2024-05-09] MEDS: CALCIUM CARBONATE 500 MG TAB 1000 MG PO (09:47)
[2024-05-09] MEDS: ENOXAPARIN 40 MG/0.4 ML SYRINGE SUBCUT (09:48)
[2024-05-09] MEDS: DOCUSATE 100 MG CAPSULE PO ×2 (09:48→20:25)
--- NOTE | 2024-05-09 10:16 | CM.DPC ---
DCP Continued Reviewed EMR and team rounds for pt?s medical status. No new discharge needs identified at this time. Plan: Anticipating dc with spouse when medically stable, possibly today. CM Team will continue to follow for coordination of discharge plans. JOSE Giraldo
--- NOTE | 2024-05-09 10:38 | PT.IPTN ---
Current Diagnoses Malignant neoplasm of colon, unspecified (05/07/24) Surgery Performed Operation Date: 05/07/24 08:45 Actual Procedures p Laparoscopic Colectomy CONVERTED TO OPEN COLECTOMY - Jose Santiago MD Physical Therapy Treatment Note M2 PT-IP Current Condition Start: 05/07/24 16:41 Freq: NEEDED Status: Active Protocol: Document 05/07/24 15:30 AB (Rec: 05/07/24 17:09 AB [id number]) Physical Therapy Current Condition Current Condition Evaluation Date 05/07/24 Treatment Diagnosis colon CA s/p hemicolectomy; difficulty in walking Onset Date 05/07/24 M3 PT-IP Subjective Start: 05/07/24 16:41 Freq: NEEDED Status: Active Protocol: Document 05/09/24 11:02 TS (Rec: 05/09/24 11:13 TS [id number]) Subjective Physical Therapy Visit Type Type Treatment Note Visit Start Time 10:38 Visit Stop Time 11:01 Notes Caregiver training Number of PAINTER HELPER Visits 2 Physical Therapy Visit Comments Patient Comments Pt found resting in chair, reports he is eating some, he is agreeable to PT. Therapy Pain Assessment Pain When Pain Assessed At Rest Pain Present Pain Present Pain Reported Location Abdomen Intensity 3 Scale Used Hassan-Bain (Faces) Pain Management Techniques Distraction,Modification of Treatment,Re-positioning, Timing of Activity with Medications M4 PT-IP Mobility and Gait Start: 05/07/24 16:41 Freq: NEEDED Status: Active Protocol: Document 05/09/24 11:02 TS (Rec: 05/09/24 11:13 TS [id number]) PT-Transfer Assessment Sit to and From Stand Sit to and from Stand Standby Assistance Equipment Transfer Assistive Device Gait Belt,Front Wheeled Walker Orthotic/Prosthetic Devices or Brace: No Comments Mobility Comments STS from chair SBA with FWW, pt is slow to stand due to pain. He ambulated ~150'SBA with FWW, requires multiple standing rest breaks due to pain. He performed steps x1 on platform step with FWW CGA ascending/descending. He performed stairs x3 with single rail and CGA from spouse. He ambulated back to room, was left in chair, spouse in room, all needs met. Gait Assessment Gait Gait Assistance Required: Standby Assistance Distance (Feet) 150 Able to Maintain Weight Bearing Status Yes During Gait Assistive Devices Assistive Device Gait Belt,Front Wheeled Walker Orthotic/Prosthetic Devices or Brace: No Gait Deviations General Gait Pattern Decreased Stride Length, Decreased Feet Clearance Factors Limiting Gait Function Factors Limiting Gait Function Decreased Activity Tolerance, Decreased Strength,Limited Range of Motion,Pain,Poor Balance Comments Gait Comments See mobility comments Stair Climbing Assessment Evaluation Level of Assist On Stairs Contact Guard Assistance,1 Person Assistance Devices Stair Climbing Assistive Devices Front Wheel Walker,Right Railing Technique/Endurance Stair Climbing Direction Ascend and Descend Stair Climbing Technique Step Over Step,Step to Step Number of Steps Climbed 4 Comments Stair Climbing Comments See mobility comments PT-Balance Assessment Sitting Balance and Reactions Static Sitting Balance Ability Good Dynamic Sitting Balance Ability Good Standing Balance and Reactions Static Standing Balance Ability Fair Dynamic Standing Balance Ability Fair Device Used FWW M5 PT-IP Objective Assessments Start: 05/07/24 16:41 Freq: NEEDED Status: Active Protocol: Document 05/07/24 15:30 AB (Rec: 05/07/24 17:09 AB [id number]) Orientation Orientation/Cognition Level of Alertness Alert Orientation Name,Situation Safety Awareness Decreased Safety Awareness Memory Description No Deficits Noted Gross Range of Motion Lower Extremity ROM Assessment Within Functional Limits Strength Lower Extremity Strength Assessment Within Functional Limits Sensation Assessment Sensation Gross Sensation WNL Muscle Tone Muscle Tone WNL Yes M6 PT-IP Treatment Start: 05/07/24 16:41 Freq: NEEDED Status: Active Protocol: Document 05/09/24 11:02 TS (Rec: 05/09/24 11:13 TS [id number]) Physical Therapy Treatment Education Education Provided Precautions,Weight Bearing Status,Post-Op Packet,Safety M7 PT-IP Assessment and Plan Start: 05/07/24 16:41 Freq: NEEDED Status: Active Protocol: Document 05/09/24 11:02 TS (Rec: 05/09/24 11:13 TS [id number]) PT Summary Assessment and Plan Potential Rehabilitation Potential Fair Summary Impairments Pain,ROM,Strength,Balance, Coordination,Sensation,Tone, Cognition,Bed Mobility, Transfers,Gait,Activity Tolerance Progress Towards Goals Progressing Toward Goals Assessment Summary Ivania is progressing with his mobility. He progressed his gait to ~150'SBA with FWW. He performed stairs x1 with FWW and x3 with single rail. He requires frequent rest breaks in standing due to pain. Spouse was instructed in STS, gait and stairs. PT is recommending home with 24/7 assist. Goals Bed Mobility Goal Independent Transfer Goal Independent,Front Wheeled Walker Gait Goal Independent,Front Wheel Walker Gait Distance 200 Other Goals improve transfers/ambulation using LRAD/ without AD ~ 300 ft mod I up/down 1 step FWW/without AD mod I up/down 13 steps L rail descendind mod I. Days to Meet Goals 10 Frequency of Treatment Frequency Of Treatment Once a Day Treatment Plan Physical Therapy Treatment Plan Bed Mobility Training,Transfer Training,Gait Training, Therapeutic Exercise,Balance Retraining,Post Op Education, Discharge Planning,Hot or Cold Pack,Neuromuscular Re-ed, Coordination Retraining,Manual Therapy Precautions Abdominal Surgery Precautions Log Roll,Lifting Restrictions, Gait Belt above Incisional Area Recommendations To Nursing Amount of Assist Needed 1 Person Assist Discharge Recommendations PT Discharge Recommendations Home with 24/7 Assist Available,Home Health Equipment Needed for Home Before FWW Discharge Transportation Needs at Discharge Private Vehicle
--- NOTE | 2024-05-09 12:03 | DIET.CONS ---
Dietary Consultation Note Admission Date: 05/07/2024 07:12 Assessment: 64 y M admitted for hemicolectomy. Nutrition screened for low MNA. Met w/ pt at bedside who had breakfast tray in front of him, had 1 slice of white toast so far, reports experiencing some abd discomfort and had not had BM. Before surgery, appetite was normal with usual po intakes, protein at meal times (i.e. eggs, tilley for breakfast) and had no symptoms. Nutrition focused physical exam completed with no significant findings. Assessed: temples, clavicle region, interosseous, buccal, orbital. Ht: 167.64 cm Wt: 79.2 kg BMI: 28.1 UBW: 83.915 kg on 04/25/24 (-5.6% weight loss in 2 weeks, severe) Last BM: 05/07/24 (05/07/24 14:14) MNA: 10 Narendra Score: 19 Diet: 05/08/24 Lunch Regular [General (Regular) Diet] Diet Modifications: protein supplement with each meal Food Texture: Level 7 - Regular Liquid Consistency: Level 0 - Thin Nutrition Percent Meal Consumed 10% 05/08/24 19:00 Percent Meal Consumed 100% 05/08/24 18:00 Percent Meal Consumed 75% 05/07/24 21:42 Percent Meal Consumed 50% 05/07/24 18:00 Labs: RBC 3.46 X10^6/uL (4.5-5.9) L 05/09/24 06:36 Hgb 10.7 g/dL (13.5-17.5) L 05/09/24 06:36 Hct 30.9 % (41-53) L 05/09/24 06:36 Creatinine 0.80 mg/dL (0.66-1.25) 05/09/24 06:36 Nutrition Diagnosis: Unintended weight loss r/t increased nutrient needs aeb 5.6% weight loss in 2 weeks Interventions: 1. Continue ONS BID-TID as tolerated to support adequate po intakes Monitoring/Evaluations: po intakes Electronically Signed by: Maureen Howell 05/09/24 12:03 Clinical [address] [address]
--- NOTE | 2024-05-09 20:19 | PM.PNPO.1 ---
Subjective Subjective Date Patient Seen: 05/09/24 Time Patient Seen: 20:19 Interval history: Decreasing incisional pain. Positive flatus and BM. Exam Vital Signs (past 8 hours): - 05/09/24 13:00 05/09/24 16:00 05/09/24 17:00 Temperature 97.8 F Pulse Rate 91 H Respiratory Rate 16 Blood Pressure 125/68 Pulse Oximetry 99 98 99 Oxygen Delivery Method Room Air Room Air Fraction of Inspired Oxygen 28 SaO2/FiO2 Ratio 342 Oxygen Delivery Method Room Air Oxygen Flow Rate 0 Narrative Exam Narrative: General adult man alert oriented no acute distress Abdomen soft appropriately tender to palpation. Objective Labs 05/09/24 06:36 05/09/24 06:36 Labs: Laboratory Results - last 24 hr 05/09/24 06:36 WBC 12.7 H RBC 3.46 L Hgb 10.7 L Hct 30.9 L MCV 89.4 MCH 31.0 MCHC 34.7 RDW 14.4 Plt Count 183 Neut % (Auto) 84.3 H Lymph % (Auto) 8.1 L Hayes % (Auto) 7.4 Eos % (Auto) 0.1 L Baso % (Auto) 0.1 Neut # (Auto) 76455 H Lymph # (Auto) 1000 L Hayes # (Auto) 900 Eos # (Auto) 0 Baso # (Auto) 0 Sodium 136 L Potassium 3.8 Chloride 106 Carbon Dioxide 25 BUN 13 Creatinine 0.80 Estimated GFR > 60 BUN/Creatinine Ratio 16.3 Glucose 106 Calcium 8.3 L PFSH Medical History (Updated 05/06/24 @ 16:14 by Jose Santiago MD) Migraines (Unknown) Coronary artery disease (1997) Myocardial infarction (~1997) Surgical History (Updated 05/06/24 @ 11:58 by Lilli Hunt RN) Hx of colonoscopy (04/25/24) Hx of left mastectomy (1979) History of breast surgery Hx of vasectomy (1996) History of three vessel coronary artery bypass (~1997) Family History Father Stroke Myocardial infarction Mother Alzheimer's disease Sister Diabetes mellitus Sister Diabetes mellitus Sister Diabetes mellitus Grandmother Alzheimer's disease Grandmother Alzheimer's disease Social History household members: spouse and children 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 Postoperative plan: routine post-op care Postoperative plan narrative: Anticipate discharge home tomorrow Quality VTE Deep Vein Thrombosis/Pulmonary Embolism Present on Admission: No
--- NOTE | 2024-05-09 21:46 | PC.NURSE ---
Patient is alert and oriented. Breath sounds diminished but CTA with RA sat of 96%. Has difficulty taking a deep breath which he attributes to wearing an abdominal binder. HRR. Denied nausea. BT hypoactive but is passing flatus and since time of assessment has had a BM. States his urinary stream is slow since catheter removed but denied any dysuria. Is able to move himself in bed but needs help to sit up. Ambulated to/from bathroom with walker and SBA. Refusing SCD's as they make it difficult for him to sleep. Aquacel dressing to midline is CDI. 2 lap sites noted on right side of abdomen and bruising on left side of abdomen; wearing abdominal binder. Stated pain only 1/10 and declined offer of pain medication. Fall risk score is moderate; patient oriented and calls appropriately for assistance so alarm is not activated.
[2024-05-10] VITALS (11 sets, daily range): BP systolic 101–110; BP diastolic 62–64; PULSE 85–96; RESP 16–18; TEMP 36.7–37.4; O2SAT 94–97
[2024-05-10] MEDS: OXYCODONE IR 5 MG TABLET PO ×2 (01:33→13:29)
[2024-05-10] MEDS: SIMETHICONE 80 MG TABLET PO (01:37)
[2024-05-10 08:22] LABS: Add Manual Diff / Slide Review NO; Basophils Absolute Auto 0 /uL (0-100); Basophils Percent Auto 0.2 % (0-2); Eosinophils Absolute Auto 200 /uL (0-450); Eosinophils Percent Auto 1.9 % (2-4); Hematocrit 29.5 % (41-53); Hemoglobin 10.2 g/dL (13.5-17.5); Lymphocytes Absolute Auto 1000 /uL (1100-4500); Lymphocytes Percent Auto 11.4 % (25-40); Mean Corpuscular HGB Conc 34.7 % (30-36); Mean Corpuscular Hemoglobin 31.5 PG (26-34); Mean Corpuscular Volume 90.8 fL (80-100); Monocytes Absolute Auto 700 /uL (0-900); Monocytes Percent Auto 7.9 % (3-14); Neutrophils Absolute Auto 6600 /uL (1500-7000); Neutrophils Percent Auto 78.6 % (50-75); Platelet Count 172 X10^3/uL (150-400); Red Blood Cell Count 3.25 X10^6/uL (4.5-5.9); Red Cell Distribution Width 14.6 % (11.6-14.8); White Blood Cell Count 8.4 X10^3/uL (4.5-11.0)
[2024-05-10 08:28] LABS: BUN Creatinine Ratio 12.9 (6-22); Blood Urea Nitrogen 9 mg/dL (9-20); Calcium 8.4 mg/dL (8.4-10.2); Carbon Dioxide 28 mmol/L (22-32); Chloride 103 mmol/L (98-107); Estimated Glomerular Filt Rate > 60 mL/min (>60); Glucose 98 mg/dL (80-110); HEMOLYSIS < 15 (0-50); Potassium 3.7 mmol/L (3.4-5.1); Sodium 136 mmol/L (137-145)
[2024-05-10] MEDS: METOPROLOL ER 25 MG TABLET PO (08:52)
[2024-05-10] MEDS: CELECOXIB 200 MG CAPSULE PO ×2 (08:52→20:53)
[2024-05-10] MEDS: ENOXAPARIN 40 MG/0.4 ML SYRINGE SUBCUT (08:52)
[2024-05-10] MEDS: DOCUSATE 100 MG CAPSULE PO ×2 (08:52→20:53)
[2024-05-10] MEDS: SODIUM CHLORIDE 0.9% FLUSH 10 ML IV ×2 (08:56→20:55)
--- NOTE | 2024-05-10 10:18 | PT.IPTN ---
Current Diagnoses Malignant neoplasm of colon, unspecified (05/07/24) Surgery Performed Operation Date: 05/07/24 08:45 Actual Procedures p Laparoscopic Colectomy CONVERTED TO OPEN COLECTOMY - Jose Santiago MD Physical Therapy Treatment Note M2 PT-IP Current Condition Start: 05/07/24 16:41 Freq: NEEDED Status: Active Protocol: Document 05/07/24 15:30 AB (Rec: 05/07/24 17:09 AB [id number]) Physical Therapy Current Condition Current Condition Evaluation Date 05/07/24 Treatment Diagnosis colon CA s/p hemicolectomy; difficulty in walking Onset Date 05/07/24 M3 PT-IP Subjective Start: 05/07/24 16:41 Freq: NEEDED Status: Active Protocol: Document 05/10/24 10:52 TS (Rec: 05/10/24 11:05 TS [id number]) Subjective Physical Therapy Visit Type Type Treatment Note Visit Start Time 10:18 Visit Stop Time 10:45 Notes Spouse present 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 Believes he might have some swelling in his scrotum, RN was notified. Pt is agreeable to PT. Therapy Pain Assessment Pain When Pain Assessed At Rest Pain Present Pain Present Pain Reported Location Abdomen Intensity 2 Scale Used Numeric (0 - 10) Description Aching Pain Management Techniques Distraction,Modification of Treatment,Re-positioning, Timing of Activity with Medications M4 PT-IP Mobility and Gait Start: 05/07/24 16:41 Freq: NEEDED Status: Active Protocol: Document 05/10/24 10:52 TS (Rec: 05/10/24 11:05 TS [id number]) PT-Transfer Assessment Sit to and From Stand Sit to and from Stand Standby Assistance Equipment Transfer Assistive Device Gait Belt,Front Wheeled Walker Orthotic/Prosthetic Devices or Brace: No Comments Mobility Comments Spo2 95% on RA, HR 95 prior to mobility. STS with FWW SBA, pt has less pain standing up this morning. He ambulated ~ 250'SBA with a slow step thru gait. He performed steps x3 with single rail CGA, and x1 with FWW on platform step. He ambulated back to room, was left in restroom, RN was notified. Gait Assessment Gait Gait Assistance Required: Standby Assistance Distance (Feet) 250 Able to Maintain Weight Bearing Status Yes During Gait Assistive Devices Assistive Device Gait Belt,Front Wheeled Walker Orthotic/Prosthetic Devices or Brace: No Gait Deviations General Gait Pattern Decreased Stride Length, Decreased Feet Clearance Factors Limiting Gait Function Factors Limiting Gait Function Decreased Activity Tolerance, Decreased Strength,Limited Range of Motion,Pain,Poor Balance Comments Gait Comments See mobility comments Stair Climbing Assessment Evaluation Level of Assist On Stairs Contact Guard Assistance,1 Person Assistance Devices Stair Climbing Assistive Devices Front Wheel Walker,Right Railing Technique/Endurance Stair Climbing Direction Ascend and Descend Stair Climbing Technique Step to Step Number of Steps Climbed 4 Comments Stair Climbing Comments See mobility comments PT-Balance Assessment Sitting Balance and Reactions Static Sitting Balance Ability Good Dynamic Sitting Balance Ability Good Standing Balance and Reactions Static Standing Balance Ability Good Dynamic Standing Balance Ability Fair Device Used FWW M5 PT-IP Objective Assessments Start: 05/07/24 16:41 Freq: NEEDED Status: Active Protocol: Document 05/07/24 15:30 AB (Rec: 05/07/24 17:09 AB [id number]) Orientation Orientation/Cognition Level of Alertness Alert Orientation Name,Situation Safety Awareness Decreased Safety Awareness Memory Description No Deficits Noted Gross Range of Motion Lower Extremity ROM Assessment Within Functional Limits Strength Lower Extremity Strength Assessment Within Functional Limits Sensation Assessment Sensation Gross Sensation WNL Muscle Tone Muscle Tone WNL Yes M6 PT-IP Treatment Start: 05/07/24 16:41 Freq: NEEDED Status: Active Protocol: Document 05/10/24 10:52 TS (Rec: 05/10/24 11:05 TS [id number]) Physical Therapy Treatment Education Education Provided Precautions,Weight Bearing Status,Post-Op Packet,Safety M7 PT-IP Assessment and Plan Start: 05/07/24 16:41 Freq: NEEDED Status: Active Protocol: Document 05/10/24 10:52 TS (Rec: 05/10/24 11:05 TS [id number]) PT Summary Assessment and Plan Potential Rehabilitation Potential Fair Summary Impairments Pain,ROM,Strength,Balance, Coordination,Sensation,Tone, Cognition,Bed Mobility, Transfers,Gait,Activity Tolerance Progress Towards Goals Progressing Toward Goals Assessment Summary Ivania continues to do well with his mobility. He progressed his gait to ~250' SBA. He continues to use FWW for balance and support. his pain has improved with mobility and is having an easier time breathing with abd binder not as tight. PT continues to recommend home with 24/7 assist. Goals Bed Mobility Goal Independent Transfer Goal Independent,Front Wheeled Walker Gait Goal Independent,Front Wheel Walker Gait Distance 200 Other Goals improve transfers/ambulation using LRAD/ without AD ~ 300 ft mod I up/down 1 step FWW/without AD mod I up/down 13 steps L rail descendind mod I. Days to Meet Goals 10 Frequency of Treatment Frequency Of Treatment Once a Day Treatment Plan Physical Therapy Treatment Plan Bed Mobility Training,Transfer Training,Gait Training, Therapeutic Exercise,Balance Retraining,Post Op Education, Discharge Planning,Hot or Cold Pack,Neuromuscular Re-ed, Coordination Retraining,Manual Therapy Precautions Abdominal Surgery Precautions Log Roll,Lifting Restrictions, Gait Belt above Incisional Area Recommendations To Nursing Amount of Assist Needed 1 Person Assist Discharge Recommendations PT Discharge Recommendations Home with 24/7 Assist Available,Home Health Equipment Needed for Home Before FWW Discharge Transportation Needs at Discharge Private Vehicle
--- NOTE | 2024-05-10 12:41 | CM.DPNOTE ---
DCP note CERTIFIED OPTICIAN reviewed EMR and team rounds for pt?s medical status. No new discharge needs identified at this time. Per surgeon note from yesterday 05/09/24, anticipate dc home today. Plan: Anticipating dc with spouse when medically stable, possibly today. CM Team will continue to follow for coordination of discharge plans. OLIVERIO Salgado
--- NOTE | 2024-05-10 12:47 | P.PN_ITS ---
Subjective Subjective Date Patient Seen: 05/10/24 Time Patient Seen: 12:48 Interval history: Continuing to improve. Tolerant of a regular diet. Has flatus and bowel movement. Required dose of IV Dilaudid early yesterday evening. Exam Vital Signs (past 8 hours): - 05/10/24 07:00 05/10/24 08:00 05/10/24 08:52 Temperature 99.3 F Pulse Rate 96 H 90 Respiratory Rate 16 Blood Pressure 104/63 104/63 Pulse Oximetry 96 94 Oxygen Delivery Method Room Air Fraction of Inspired Oxygen 28 SaO2/FiO2 Ratio 342 Oxygen Delivery Method Room Air Oxygen Flow Rate 0 Narrative Exam Narrative: General adult man alert oriented no acute distress Abdomen soft appropriately tender to palpation. Midline dressing clean dry intact Objective Labs 05/10/24 07:53 05/10/24 07:53 Labs: Laboratory Results - last 24 hr 05/10/24 07:53 WBC 8.4 RBC 3.25 L Hgb 10.2 L Hct 29.5 L MCV 90.8 MCH 31.5 MCHC 34.7 RDW 14.6 Plt Count 172 Neut % (Auto) 78.6 H Lymph % (Auto) 11.4 L [place] % (Auto) 7.9 Eos % (Auto) 1.9 L Baso % (Auto) 0.2 Neut # (Auto) 6600 Lymph # (Auto) 1000 L [place] # (Auto) 700 Eos # (Auto) 200 Baso # (Auto) 0 Sodium 136 L Potassium 3.7 Chloride 103 Carbon Dioxide 28 BUN 9 Creatinine 0.70 Estimated GFR > 60 BUN/Creatinine Ratio 12.9 Glucose 98 Calcium 8.4 PFSH Medical History (Updated 05/06/24 @ 16:14 by Jose Santiago MD) Migraines (Unknown) Coronary artery disease (1997) Myocardial infarction (~1997) Surgical History (Updated 05/06/24 @ 11:58 by Lilli Hunt RN) Hx of colonoscopy (04/25/24) Hx of left mastectomy (1979) History of breast surgery Hx of vasectomy (1996) History of three vessel coronary artery bypass (~1997) Family History Father Stroke Myocardial infarction Mother Alzheimer's disease Sister Diabetes mellitus Sister Diabetes mellitus Sister Diabetes mellitus Grandmother Alzheimer's disease Grandmother Alzheimer's disease Social History household members: spouse and children 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
--- NOTE | 2024-05-10 21:15 | PC.NURSE ---
Patient is alert and oriented. Breath sounds remain diminished especially at bases but reports improved breathing since abdominal binder loosened and now able to get to 1500 on I.S. (up from 1200); RA sat is 97%. HRR. Denies nausea. BT hypoactive but passing lots of gas. Reports appetite has not been good, only able to eat a slice of toast and some rice cereal at meals. Abdomen is slightly distended. Is voiding without dysuria but still reports slow urinary stream. Scrotum is swollen which MD is aware of. Aquacel dressing to midline is CDI; lap sites x2 on right side of abdomen without redness. Is now independent with mobility and made 3 laps in the contre[place] using walker tonight and tolerated well. Refuses SCD's so encouraged mobility to prevent DVT. States pain is only 1/10 and has no need for pain medication at this time. Fall risk score is moderate; bed alarm is not activated due to independence with mobility.
[2024-05-11 03:37] VITALS: BP 112/61; PULSE 79; RESP 18; TEMP 36.5; O2SAT 96
[2024-05-11] MEDS: OXYCODONE IR 5 MG TABLET PO ×2 (04:47→10:37)
[2024-05-11 08:32] VITALS: BP 107/64; PULSE 92; RESP 16; TEMP 36.9; O2SAT 94
[2024-05-11 08:49] VITALS: BP 107/64; PULSE 92
[2024-05-11] MEDS: METOPROLOL ER 25 MG TABLET PO (08:49)
[2024-05-11] MEDS: CELECOXIB 200 MG CAPSULE PO (08:49)
[2024-05-11] MEDS: DOCUSATE 100 MG CAPSULE PO (08:49)
[2024-05-11] MEDS: ENOXAPARIN 40 MG/0.4 ML SYRINGE SUBCUT (08:50)
[2024-05-11] MEDS: SODIUM CHLORIDE 0.9% FLUSH 10 ML IV (08:50)
[2024-05-11 08:57] VITALS: O2SAT 94
--- NOTE | 2024-05-11 09:35 | PT-IP ANOTE ---
PT reviews chart and notes that pt has ambulated over 250' with RW with PT and has performed steps. Nsg states that pt is up ad rich and has had some concerns about bed mobility. PT checks in with pt and and has gotten RW from soroptomist. Pt and deny further PT needs and PT asks about bed mobility and pt reports no further concerns. PT re-ed on bed flat, bend knees and log rolling technique and pt states no problem. Will d/c PT.
--- NOTE | 2024-05-11 10:01 | P.DS_ITS ---
History of Present Illness History of Present Illness Date Patient Seen: 05/11/24 Time Patient Seen: 10:01 Chief complaint: INPT Narrative: Ivania Carr is a 64 year old man PMH CAD sp CABG with a new diagnosis of colon cancer. Last week he had a diagnostic colonoscopy which demonstrated a near obstructing mass in the colon and biopsy confirmed moderately differentiated adenocarcinoma. Scope could not safely pass beyond the mass and the proximal colon has not been endoscopic evaluated. Staging CT C/A/P demonstrates a 6 inch long mass near the splenic flexure with slightly lymphadenopathy, nothing pathologic. No family history of intestinal disease or malignancy. Discharge Providers Provider Date of admission: 05/07/24 07:12 Discharge Date: 05/11/24 Primary care physician: Keturah Souza MD Consults: 05/07/24 13:40 Consult to Occupational Therapy Evaluate & Treat Comment: Physician Instructions: Evaluate and treat Consult to Physical Therapy Evaluate & Treat Comment: Physician Instructions: Evaluate and Treat Discharge provider: Jose Santiago MD Summary Hospital Course Discharge Diagnosis: Colon cancer Hospital Course: Patient underwent a laparoscopic-assisted transverse colectomy May 07. Dense intra-abdominal adhesions was converted to open. Did well postoperatively unremarkable postoperative course. At discharge tolerant of diet has return of bowel function ambulatory pain is well controlled with p.o. medication. Exam Vital Signs (past 8 hours): - 05/11/24 03:37 05/11/24 03:37 05/11/24 08:32 Temperature 97.7 F 98.4 F Pulse Rate 79 92 H Respiratory Rate 18 16 Blood Pressure 112/61 107/64 Pulse Oximetry 96 96 94 Oxygen Delivery Method Room Air Oxygen Flow Rate 0 0 05/11/24 08:49 05/11/24 08:57 Temperature Pulse Rate 92 H Respiratory Rate Blood Pressure 107/64 Pulse Oximetry 94 Oxygen Delivery Method Room Air Oxygen Flow Rate Fraction of Inspired Oxygen 28 SaO2/FiO2 Ratio 342 Oxygen Delivery Method Room Air Oxygen Flow Rate 0 Narrative Exam Narrative: General adult man alert oriented no acute distress Chest nonlabored respiration Abdomen soft appropriately tender to palpation. Midline dressing clean dry intact. Objective Labs 05/10/24 07:53 05/10/24 07:53 [facility] Medical History (Updated 05/06/24 @ 16:14 by Jose Santiago MD) Migraines (Unknown) Coronary artery disease (1997) Myocardial infarction (~1997) Surgical History (Updated 05/06/24 @ 11:58 by Lilli Hunt RN) Hx of colonoscopy (04/25/24) Hx of left mastectomy (1979) History of breast surgery Hx of vasectomy (1996) History of three vessel coronary artery bypass (~1997) Family History Father Stroke Myocardial infarction Mother Alzheimer's disease Sister Diabetes mellitus Sister Diabetes mellitus Sister Diabetes mellitus Grandmother Alzheimer's disease Grandmother Alzheimer's disease Social History household members: spouse and children 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 -No lifting >10 lbs x 4 weeks. -Walking only for exercise for 4 weeks. -No driving while taking narcotics. Discharge orders & Medications Prescriptions: New ibuprofen 200 mg tablet 400 mg PO Q6H Qty: 60 0RF docusate sodium [Colace] 100 mg capsule 100 mg PO BID Qty: 40 0RF acetaminophen 500 mg capsule 1,000 mg PO Q6H PRN (Reason: pain) Qty: 60 0RF oxycodone 5 mg tablet 5 mg PO Q6H PRN (Reason: pain) Qty: 30 0RF Continued Livalo 4 mg tablet 4 mg PO DAILY Qty: 90 2RF ezetimibe [Zetia] 10 mg tablet 10 mg PO DAILY Qty: 90 2RF neomycin 500 mg tablet 1 g PO TID Qty: 6 0RF Rx Instructions: administer at 1 PM, 2 PM, and 10 PM the day prior to surgery aspirin [Adult Low Dose Aspirin] 81 mg tablet,delayed release (DR/EC) 81 mg PO DAILY metoprolol succinate 50 mg tablet extended release 24 hr 25 mg PO DAILY fexofenadine 180 mg Tablet 180 mg PO DAILY Discontinued metronidazole 500 mg tablet 500 mg PO TID Qty: 3 0RF Rx Instructions: administer at 1 PM, 2 PM, and 10 PM the day prior to surgery Follow up/Referrals: Jose Santiago MD [Physician] - As previously scheduled Diet/Activity/Treatments Diet: Diet as Tolerated Skin/Wound/Dressing Care Report to your healthcare provider any signs of infection, such as:: chills, fever, increased pain, unusual drainage and unusual redness Visit Report/Discharge Packet Instructions: DI for Colectomy, DI for Prescription Opioid Use Stand Alone Forms: Patient Portal/API, Stroke Signs & Symptoms Discharge Data Primary Care Provider: Keturah Souza VTE Deep Vein Thrombosis/Pulmonary Embolism Present on Admission: No
--- NOTE | 2024-05-11 10:40 | PC.NURSE ---
Day shift: Discharge instructions gone over with patient and patient's spouse. All questions answered. PIV removed prior to discharge. All belongings with patient. LASHELL Rose escorted patient to exit via wheelchair.
== END 2024-05-11 10:42 | disposition home or self-care (01) | DRG 331 ==
PROVIDERS: Admitting Provider Surgery; PCP Family Medicine; Referring Provider Surgery; Visit Provider Surgery
PROC: 0DTE0ZZ Resection of Large Intestine, Open Approach (ICD-10-PCS; principal; 2024-05-07 08:45)
DX: C18.4 Malignant neoplasm of transverse colon (principal); I25.10 Atherosclerotic heart disease of native coronary artery without angina pectoris; I10 Essential (primary) hypertension; Z95.1 Presence of aortocoronary bypass graft
CPT/HCPCS: 36415; 80048; 85025; 94760; 97116; 97162; 97165; 97530; 97535; J0330; J1100; J1170; J1650; J1885; J2250; J2405; J2543; J2704; J3010

== ENCOUNTER → 2024-06-12 13:30 | Outpatient (CLI) | payer BC, SELFPAY ==
[2024-05-07 14:14] VITALS: BMI 28.1
--- NOTE | 2024-06-12 13:31 | DI.US.S_ITS ---
PROCEDURE: US PERIPH VENOUS LOW EXTREM LT INDICATIONS: hx colon cancer recent surgery r/o dvt TECHNIQUE: Real-time imaging, as well as color and pulse Doppler interrogation, were performed of the lower extremity deep veins from the inguinal ligament to the popliteal fossa, with documentation of the visualized calf veins. COMPARISON: [facility], CT, CT CHEST ABD PEL W CON, 04/25/2024, 16:15. FINDINGS: There is occlusive thrombus throughout the left lower extremity extending from the common femoral vein to below the knee. IMPRESSION: Occlusive deep venous thrombosis throughout the left lower extremity extending from the common femoral vein to below the knee. Consider a CT venogram of the abdomen and pelvis (120 second delay) for further evaluation. Deep venous thrombosis findings were discussed with Dr. Santiago at 2:20 p.m. on June 12, 2024 by the technologist. Dictated by: Donis Storm M.D. on 06/12/2024 at 14:37 Approved by: Donis Storm M.D. on 06/12/2024 at 14:40
== END ==
PROVIDERS: PCP Family Medicine; Referring Provider Surgery; Visit Provider Surgery
DX: I82.412 Acute embolism and thrombosis of left femoral vein (principal); M79.669 Pain in unspecified lower leg
CPT/HCPCS: 93971

== ENCOUNTER 2024-06-12 14:22 | Emergency (ER) | payer BC, SELFPAY ==
[2024-05-07 14:14] VITALS: BMI 28.1
[2024-06-12] VITALS (12 sets, daily range): BP systolic 109–132; BP diastolic 69–75; PULSE 83–102; RESP 17–43; TEMP 36.6; O2SAT 96–99; BMI 28.0
--- NOTE | 2024-06-12 14:28 | ED.ABDPAIN ---
HPI - Abdominal Pain <Adrián Clark PA-C - Last Filed: 06/12/24 18:36> General Chief Complaint: Recheck/Abnormal Lab/Rx Stated Complaint: left leg pain/swelling tachycardic +DVT Time Seen by Provider: 06/12/24 14:27 History of Present Illness HPI narrative: this is a 64-year-old male presents emergency department due to Left lower extremity swelling for the last week. he was 2 weeks status post colectomy with Dr. Santiago. He was being seen for routine postop exam when he was noticed to have the left lower extremity edema and received an ultrasound which was positive for DVT. Sent to the emergency department for rule out PE. Denies any significant tested pain but does report shortness of breath since the surgery. It has not on any blood thinners other than 81 mg aspirin daily. Denies any fevers, nausea, vomiting, or any other concerning signs or symptoms. Related Data Home Medications Medication Instructions Recorded Confirmed aspirin 81 mg tablet,delayed 81 mg PO DAILY 04/06/20 06/12/24 release (Adult Low Dose Aspirin) metoprolol succinate 50 mg 25 mg PO DAILY 05/06/24 06/12/24 tablet,extended release 24 hr fexofenadine 180 mg tablet 180 mg PO DAILY 05/07/24 06/12/24 Previous Rx's Medication Instructions Recorded ezetimibe 10 mg tablet (Zetia) 10 mg PO DAILY #90 tabs 11/15/23 pitavastatin calcium 4 mg tablet 4 mg PO DAILY #90 tabs 11/15/23 (Livalo) neomycin 500 mg tablet 1 g (2 x 500 mg) PO TID 3 doses #6 05/05/24 tabs acetaminophen 500 mg capsule 1,000 mg (2 x 500 mg) PO Q6H PRN 05/10/24 pain #60 caps docusate sodium 100 mg capsule 100 mg PO BID #40 caps 05/10/24 (Colace) ibuprofen 200 mg tablet 400 mg (2 x 200 mg) PO Q6H #60 tabs 05/10/24 oxycodone 5 mg tablet 5 mg PO Q6H PRN pain #30 tabs 05/10/24 apixaban 5 mg (74 tabs) tablets in See Rx Instructions PO .COMPLEX 06/12/24 a dose pack #74 ea Allergies Allergy/AdvReac Type Severity Reaction Status Date / Time No Known Drug Allergies Allergy Verified 06/12/24 13:08 Review of Systems <Adrián Clark PA-C - Last Filed: 06/12/24 18:36> Review of Systems Narrative: GENERAL: Denies chills, fatigue, malaise, fever, sweats. HEENT: Denies sinus pain, ear pain, sore throat, difficulty swallowing, dizziness. RESPIRATORY: reports shortness of breath denies, cough, wheezing, hemoptysis, sputum. CARDIOVASCULAR: Denies chest pain, palpitations, orthopnea, edema, GASTROINTESTINAL: Denies nausea, vomiting, abdominal pain, diarrhea, constipation, melena. : Denies dysuria, frequency, incontinence, hematuria, urinary retention. MUSCULOSKELETAL: Reports left lower extremity edema SKIN: Denies rash, skin lesions, or other NEUROLOGIC: Denies weakness, headache, numbness, change in speech, confusion, seizures, incoordination. PSYCHIATRIC: No concerning psychosocial issues. 12 point review of systems is negative except for those stated above Patient History <Adrián Clark PA-C - Last Filed: 06/12/24 18:36> Medical History (Updated 06/12/24 @ 18:35 by Adrián Clark PA-C) Migraines (Unknown) Coronary artery disease (1997) Myocardial infarction (~1997) Surgical History (Updated 05/06/24 @ 11:58 by Lilli Hunt RN) Hx of colonoscopy (04/25/24) Hx of left mastectomy (1979) History of breast surgery Hx of vasectomy (1996) History of three vessel coronary artery bypass (~1997) Family History Father Stroke Myocardial infarction Mother Alzheimer's disease Sister Diabetes mellitus Sister Diabetes mellitus Sister Diabetes mellitus Grandmother Alzheimer's disease Grandmother Alzheimer's disease Social History household members: spouse and children 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 HEAD: Atraumatic. Normocephalic. EYES: Pupils equal round and reactive. Extraocular motions intact. No scleral icterus. No injection or drainage. ENT: Nose without bleeding, purulent drainage. Throat without erythema, tonsillar hypertrophy or exudate. Airway patent. NECK: Trachea midline. Non tender EXTREMITIES: Moderate nonpitting edema to the left calf, mild tenderness to palpation NEURO: AOx3. SKIN: No rash or erythema of visible areas CARDIOVASCULAR: Regular rate and rhythm without murmurs, gallops, or rubs. RESPIRATORY: Clear to auscultation. Breath sounds equal bilaterally. No wheezes, rales, or rhonchi. GASTROINTESTINAL: Abdomen soft, non-tender, nondistended. BACK: Nontender without deformity or crepitance. No flank tenderness. Initial Vital Signs Initial Vital Signs: Vital Signs Pulse Rate 102 H 06/12/24 14:27 Blood Pressure 132/75 06/12/24 14:27 Pulse Oximetry 99 06/12/24 14:27 <Joel Pedroza DO - Last Filed: 06/12/24 19:00> Initial Vital Signs Initial Vital Signs: Vital Signs Pulse Rate 102 H 06/12/24 14:27 Blood Pressure 132/75 06/12/24 14:27 Pulse Oximetry 99 06/12/24 14:27 Course <Adrián Clark PA-C - Last Filed: 06/12/24 18:36> Orders Ordered: ED Orders 06/12/24 14:42 EKG-12 Lead Stat 06/12/24 14:43 CT angio chest PE protocol Stat 06/12/24 15:15 Complete Blood Count AUTO DIFF Stat Comprehensive Metabolic Panel Stat 06/12/24 15:43 CT abdomen pelvis w con Stat Vital Signs Vital signs: Vital Signs - 8 hr 06/12/24 14:27 06/12/24 14:27 06/12/24 14:30 Temperature Pulse Rate 102 H 96 H Respiratory Rate 22 Blood Pressure 132/75 Pulse Oximetry 99 99 Oxygen Delivery Method 06/12/24 14:32 06/12/24 15:00 06/12/24 15:22 Temperature 97.9 F Pulse Rate 100 H 96 H Respiratory Rate 19 28 H Blood Pressure 132/75 117/69 Pulse Oximetry 98 96 Oxygen Delivery Method Room Air 06/12/24 15:22 06/12/24 15:30 06/12/24 15:30 Temperature Pulse Rate 90 91 H Respiratory Rate 22 23 Blood Pressure 109/69 Pulse Oximetry 98 98 Oxygen Delivery Method 06/12/24 16:03 06/12/24 16:30 06/12/24 17:00 Temperature Pulse Rate 88 86 87 Respiratory Rate 17 22 25 H Blood Pressure Pulse Oximetry 97 99 98 Oxygen Delivery Method 06/12/24 18:22 06/12/24 18:23 06/12/24 18:23 Temperature Pulse Rate 84 86 Respiratory Rate 33 H Blood Pressure 117/72 Pulse Oximetry 98 98 Oxygen Delivery Method 06/12/24 18:30 Temperature Pulse Rate 83 Respiratory Rate 43 H Blood Pressure Pulse Oximetry Oxygen Delivery Method <Joel Pedroza, DO - Last Filed: 06/12/24 19:00> Orders Ordered: ED Orders 06/12/24 14:42 EKG-12 Lead Stat 06/12/24 14:43 CT angio chest PE protocol Stat 06/12/24 15:15 Complete Blood Count AUTO DIFF Stat Comprehensive Metabolic Panel Stat 06/12/24 15:43 CT abdomen pelvis w con Stat Vital Signs Vital signs: Vital Signs - 8 hr 06/12/24 14:27 06/12/24 14:27 06/12/24 14:30 Temperature Pulse Rate 102 H 96 H Respiratory Rate 22 Blood Pressure 132/75 Pulse Oximetry 99 99 Oxygen Delivery Method 06/12/24 14:32 06/12/24 15:00 06/12/24 15:22 Temperature 97.9 F Pulse Rate 100 H 96 H Respiratory Rate 19 28 H Blood Pressure 132/75 117/69 Pulse Oximetry 98 96 Oxygen Delivery Method Room Air 06/12/24 15:22 06/12/24 15:30 06/12/24 15:30 Temperature Pulse Rate 90 91 H Respiratory Rate 22 23 Blood Pressure 109/69 Pulse Oximetry 98 98 Oxygen Delivery Method 06/12/24 16:03 06/12/24 16:30 06/12/24 17:00 Temperature Pulse Rate 88 86 87 Respiratory Rate 17 22 25 H Blood Pressure Pulse Oximetry 97 99 98 Oxygen Delivery Method 06/12/24 18:22 06/12/24 18:23 06/12/24 18:23 Temperature Pulse Rate 84 86 Respiratory Rate 33 H Blood Pressure 117/72 Pulse Oximetry 98 98 Oxygen Delivery Method 06/12/24 18:30 Temperature Pulse Rate 83 Respiratory Rate 43 H Blood Pressure Pulse Oximetry Oxygen Delivery Method MDM - Abdominal Pain <Adrián Clark PA-C - Last Filed: 06/12/24 18:36> Lab Data 06/12/24 15:15 06/12/24 15:15 Labs: Lab Results 06/12/24 Range/Units 15:15 WBC 7.4 (4.5-11.0) X10^3/uL RBC 4.54 (4.5-5.9) X10^6/uL Hgb 13.0 L (13.5-17.5) g/dL Hct 38.9 L (41-53) % MCV 85.7 (80-100) fL MCH 28.6 (26-34) PG MCHC 33.4 (30-36) % RDW 15.5 H (11.6-14.8) % Plt Count 288 (150-400) X10^3/uL Neut % (Auto) 65.8 (50-75) % Lymph % (Auto) 20.1 L (25-40) % [place] % (Auto) 9.8 (3-14) % Eos % (Auto) 3.7 (2-4) % Baso % (Auto) 0.6 (0-2) % Neut # (Auto) 4900 (6518-6535) /uL Lymph # (Auto) 1500 (5376-8642) /uL [place] # (Auto) 700 (0-900) /uL Eos # (Auto) 300 (0-450) /uL Baso # (Auto) 0 (0-100) /uL Sodium 140 (137-145) mmol/L Potassium 4.2 (3.4-5.1) mmol/L Chloride 105 (98-107) mmol/L Carbon Dioxide 22 (22-32) mmol/L BUN 26 H (9-20) mg/dL Creatinine 0.94 (0.66-1.25) mg/dL Estimated GFR > 60 (>60) mL/min BUN/Creatinine Ratio 27.7 H (6-22) Glucose 82 (80-110) mg/dL Calcium 9.9 (8.4-10.2) mg/dL Total Bilirubin 0.5 (0.2-1.3) mg/dL AST 26 (17-59) IU/L ALT 25 (<50) IU/L Alkaline Phosphatase 81 (38-126) U/L Total Protein 8.3 H (6.3-8.2) g/dL Albumin 4.8 (3.5-5.0) g/dL Globulin 3.5 (1.7-4.1) g/dL Albumin/Globulin Ratio 1.4 (1.0-2.8) Imaging Data US - DVT: Radiologist's Impression: [address] [address] Ultrasound Report Signed Patient: Ivania Carr MR#: [id number] : 1960 Acct:[id number] Age/Sex: 64 / M Date of Service: 06/12/24 Loc: US Accession Number: [id number] Procedure: US periph venous low extrem lt Ordering Provider: Jose Santiago MD PROCEDURE: US PERIPH VENOUS LOW EXTREM LT INDICATIONS: hx colon cancer recent surgery r/o dvt TECHNIQUE: Real-time imaging, as well as color and pulse Doppler interrogation, were performed of the lower extremity deep veins from the inguinal ligament to the popliteal fossa, with documentation of the visualized calf veins. COMPARISON: [facility], CT, CT CHEST ABD PEL W CON, 04/25/2024, 16:15. FINDINGS: There is occlusive thrombus throughout the left lower extremity extending from the common femoral vein to below the knee. IMPRESSION: Occlusive deep venous thrombosis throughout the left lower extremity extending from the common femoral vein to below the knee. Consider a CT venogram of the abdomen and pelvis (120 second delay) for further evaluation. Deep venous thrombosis findings were discussed with Dr. Santiago at 2:20 p.m. on June 12, 2024 by the technologist. Dictated by: Donis Storm M.D. on 06/12/2024 at 14:37 Approved by: Donis Storm M.D. on 06/12/2024 at 14:40 CT scan - chest: Radiologist's Impression: [address] [address] [address] Scan Report Signed Patient: Ivania Carr MR#: [id number] : 1960 Acct:[id number] Age/Sex: 64 / M Date of Service: 06/12/24 Loc: ED Accession Number: [id number] Procedure: CT angio chest PE protocol Ordering Provider: Adrián Clark PA-C PROCEDURE: CT ANGIO CHEST PE PROTOCOL INDICATIONS: + DVT, tachycardia TECHNIQUE: After the administration of intravenous contrast, 2 mm thick sections acquired from the pulmonary apices to the posterior costophrenic angles. 3-dimensional maximum intensity projection (MIP) coronal and sagittal reformats were then acquired through the thorax. For radiation dose reduction, the following was used: automated exposure control, adjustment of mA and/or kV according to patient size. COMPARISON: [facility], CT, CT CHEST ABD PEL W CON, 04/25/2024, 16:15. [facility], CT, CT ABDOMEN PELVIS W CON, 06/12/2024, 15:53. FINDINGS: Image quality: Diagnostic. Pulmonary arteries: Pulmonary arteries are normal in size, and demonstrate no intraluminal filling defects to suggest central pulmonary embolism. Lower Neck: No enlarged lymph nodes. Thyroid: No thyroid nodules which require sonographic follow up, per consensus guidelines. Axillae: No enlarged lymph nodes. Chest Wall: Elevation of the left hemidiaphragm. Bones: No acute fractures. No aggressive appearing lytic or blastic osseous lesions. Moderate multilevel degenerative changes. Intact sternotomy wires. Lungs and Pleura: No pneumothorax or pleural effusions. Increased left lower lobe hypodense consolidation compared to prior CT dated April 25, 2024 (). Heart: Heart size is enlarged, stable. No pericardial effusion. Postsurgical changes of coronary bypass. Thoracic Vessels: No aortic aneurysm. Mediastinum and Monique: No enlarged lymph nodes. Esophagus: No wall thickening. No hiatal hernia. Upper Abdomen: Please see same day CT abdomen and pelvis for additional findings. IMPRESSION: 1. No pulmonary embolus. 2. Elevation of the left hemidiaphragm which may be secondary to phrenic nerve dysfunction, as before. Increased hypodense consolidation in the left lower lobe, new compared to prior compatible with aspiration and/or pneumonia with an underlying atelectatic component. 3. Postsurgical changes of CABG. Stable cardiomegaly. Dictated by: Donis Storm M.D. on 06/12/2024 at 16:44 Approved by: Donis Storm M.D. on 06/12/2024 at 16:50 CT scan - abdomen/pelvis: Radiologist's Impression: [address] [address] [address] Scan Report Signed Patient: Ivania Carr MR#: [id number] : 1960 Acct:[id number] Age/Sex: 64 / M Date of Service: 06/12/24 Loc: ED Accession Number: [id number] Procedure: CT abdomen pelvis w con Ordering Provider: Adrián Clark PA-C PROCEDURE: CT ABDOMEN PELVIS W CON INDICATIONS: + DVT, recommended CT venogram abdomen/pelvis TECHNIQUE: After the administration of intravenous contrast, axial sections acquired from the lung bases to the pubic symphysis. Coronal and sagittal reformats were performed. For radiation dose reduction, the following was used: automated exposure control, adjustment of mA and/or kV according to patient size. COMPARISON: [facility], CT, CT CHEST ABD PEL W CON, 04/25/2024, 16:15. [facility], CT, CT ANGIO CHEST PE PROTOCOL, 06/12/2024, 15:53. [facility], US, US PERIPH VENOUS LOW EXTREM LT, 06/12/2024, 14:07. FINDINGS: Image quality: Diagnostic. Lower Chest: Elevation of the left hemidiaphragm with left basilar atelectasis. Post CABG changes. ABDOMEN: Liver: No solid mass. Gallbladder: No radiopaque gallstones or wall thickening. Biliary ducts: No biliary dilation. Pancreas: No ductal dilation. Spleen: Size is within normal limits. Adrenal Glands: No adrenal nodules. Kidneys and Ureters: No hydronephrosis. No solid mass. No complex renal cystic lesion which requires follow up. Stomach and Bowel: Status post partial colectomy with surgical anastomosis in the midline upper abdomen. No signs of small bowel obstruction. Peritoneum: No abnormal intraperitoneal fluid. No free air. Ventral Wall: No significant ventral hernia. Abdominal Nodes: No retroperitoneal or mesenteric adenopathy by size criteria. Vessels: Aorta and inferior vena cava are normal in size. Filling defect is seen within the left common femoral vein extending into the femoral vein, consistent with known deep venous thrombosis. No involvement of the external iliac vein is seen. The remaining visualized venous structures are intact. PELVIS: Pelvic Organs: Unremarkable. Bladder: No bladder wall thickening, accounting for underdistention. Pelvic Nodes: No enlarged lymph nodes. Miscellaneous: No inguinal hernias are seen. Bones: No aggressive osseous abnormality. IMPRESSION: Filling defect is seen within the left common femoral vein and femoral vein consistent with known deep venous thrombosis. No involvement of the pelvic veins or IVC. Approved by: Roderick Paige M.D. on 06/12/2024 at 17:12 ECG Data Interpretation: 17:EKG is normal sinus rhythm rate 90 and free of any signs of ischemia or ectopy. No ST segmental elevation or depression. No T wave inversions MDM Narrative Medical decision making narrative: ED course: This is a 64-year-old male presents to the emergency department due to a left lower extremity DVT. He has a history of a open hemicolectomy with Dr. Santiago on 05/07/2024 due to adenocarcinoma, approximately 1 month ago. He was seen for routine postop visit today when he was noticed to have left lower extremity swelling and had a ultrasound ordered which showed a DVT from the common femoral vein to [id number]. He was recommended to follow up in the emergency department to rule out PE. CT PE was negative. Per the ultrasound report a CT venogram of the abdomen and pelvis was also recommended which showed no further continuation of the DVT. Patient was discussed with on-call general surgeon, Dr. Carbone, who said it would be appropriate to start anticoagulation as the patient is 1 month postop from the hemicolectomy. Patient was started on apixaban and recommended follow up with Dr. Santiago's office for continued care. CC: Left lower extremity swelling Complicating co-morbidities: History of hemicolectomy Data collected from: Previous notes Medical records reviewed: Patient was not been to this emergency department the past. Per recent note from Dr. Santiago. Patient was a past medical history of coronary artery disease status post CABG in 1997 with a new diagnosis of colon cancer. He has a near obstructing mass in the colon which was suspected to be adeno carcinoma. Underwent colectomy roughly a month ago on May 07. Eventually was converted to open. Patient was recommended to continue his 81 mg aspirin daily. Patient was seen by Dr. Santiago earlier today. For routine postop exam. Was noted to have right lower extremity swelling concerning for DVT. Differential considered, but not limited to: DVT, infection, PE Exam documented above, pertinent findings include: Left lower extremity edema Lab Test results independently reviewed as above. Pertinent findings: No significant abnormalities Imaging studies independently reviewed: CT PE negative for PE, did suggest possible atelectasis versus pneumonia the patient was not having any fever and no white count low concern for pneumonia. CT abdomen and pelvis unremarkable as well for any continuation of the did DVT. Ultrasound positive for DVT as mentioned above Scores Used: None MIPS Elements: None Consultations: None Treatments: None Re-evaluations: None Discussion: Discussed plan with the patient was comfortable with the plan Diagnosis: Left lower extremity DVT Disposition: see below, along with detailed discharge instructions that have been reviewed with patient as well as indications for ED re-evaluation and additional outpatient follow up <Joel Pedroza DO - Last Filed: 06/12/24 19:00> Lab Data Labs: Lab Results 06/12/24 Range/Units 15:15 WBC 7.4 (4.5-11.0) X10^3/uL RBC 4.54 (4.5-5.9) X10^6/uL Hgb 13.0 L (13.5-17.5) g/dL Hct 38.9 L (41-53) % MCV 85.7 (80-100) fL MCH 28.6 (26-34) PG MCHC 33.4 (30-36) % RDW 15.5 H (11.6-14.8) % Plt Count 288 (150-400) X10^3/uL Neut % (Auto) 65.8 (50-75) % Lymph % (Auto) 20.1 L (25-40) % [place] % (Auto) 9.8 (3-14) % Eos % (Auto) 3.7 (2-4) % Baso % (Auto) 0.6 (0-2) % Neut # (Auto) 4900 (2076-7753) /uL Lymph # (Auto) 1500 (5124-2700) /uL [place] # (Auto) 700 (0-900) /uL Eos # (Auto) 300 (0-450) /uL Baso # (Auto) 0 (0-100) /uL Sodium 140 (137-145) mmol/L Potassium 4.2 (3.4-5.1) mmol/L Chloride 105 (98-107) mmol/L Carbon Dioxide 22 (22-32) mmol/L BUN 26 H (9-20) mg/dL Creatinine 0.94 (0.66-1.25) mg/dL Estimated GFR > 60 (>60) mL/min BUN/Creatinine Ratio 27.7 H (6-22) Glucose 82 (80-110) mg/dL Calcium 9.9 (8.4-10.2) mg/dL Total Bilirubin 0.5 (0.2-1.3) mg/dL AST 26 (17-59) IU/L ALT 25 (<50) IU/L Alkaline Phosphatase 81 (38-126) U/L Total Protein 8.3 H (6.3-8.2) g/dL Albumin 4.8 (3.5-5.0) g/dL Globulin 3.5 (1.7-4.1) g/dL Albumin/Globulin Ratio 1.4 (1.0-2.8) Discharge Plan Departure Patient Disposition: Home Clinical Impression: DVT (deep venous thrombosis) Activity Restrictions/Additional Instructions: Thank you for coming to the [facility] Emergency Department today. As we discussed your testing came back positive with a DVT in your leg but did not show any blood clot in your lungs or any of the veins in your abdomen or pelvis area. Please take the oral anticoagulation as prescribed. Please follow up with Dr. Santiago tomorrow to keep him updated on the plan. Please follow up with the primary care provider in a week to keep him informed of the plan as you may need a longer treatment. Please stop taking the baby aspirin that you are prescribed. Please return to the emergency department if you develop any significant chest pain, shortness of breath, or any other concerning signs or symptoms. I hope you feel better soon. Please follow up with your primary care provider within a week if your symptoms continue. If you do not have a primary care provider please contact the [facility] Resource line at [phone]. They will ask some questions about your medical history and help you get set up with a provider in the community. Prescriptions: New apixaban 5 mg (74 tabs) tablets,dose pack See Rx Instructions .ROUTE .COMPLEX Qty: 74 0RF Rx Instructions: orally per package directions No Action Livalo 4 mg tablet 4 mg PO DAILY Qty: 90 2RF ezetimibe [Zetia] 10 mg tablet 10 mg PO DAILY Qty: 90 2RF neomycin 500 mg tablet 1 g PO TID Qty: 6 0RF Rx Instructions: administer at 1 PM, 2 PM, and 10 PM the day prior to surgery aspirin [Adult Low Dose Aspirin] 81 mg tablet,delayed release (DR/EC) 81 mg PO DAILY metoprolol succinate 50 mg tablet extended release 24 hr 25 mg PO DAILY fexofenadine 180 mg Tablet 180 mg PO DAILY ibuprofen 200 mg tablet 400 mg PO Q6H Qty: 60 0RF docusate sodium [Colace] 100 mg capsule 100 mg PO BID Qty: 40 0RF acetaminophen 500 mg capsule 1,000 mg PO Q6H PRN (Reason: pain) Qty: 60 0RF oxycodone 5 mg tablet 5 mg PO Q6H PRN (Reason: pain) Qty: 30 0RF Referrals: Keturah Souza MD [Primary Care Provider] - Stand Alone Forms: Patient Portal/API ED Sign-out <Joel Pedroza DO - Last Filed: 06/12/24 19:00> Cosign ED Attending Cosignature Attestation: Dr Pedroza Co-Sign Statement: I was available for consultation during this patient's emergency department visit. This chart is signed by myself for administrative purposes only. I did not have direct contact with this patient during this visit. They were seen independently by the APC.
--- NOTE | 2024-06-12 14:42 | EKG_ITS ---
[place] [id number] [address] [place] [address] Test Date: 2024-06-12 Pat Name: Ivania Carr Department: Room: Gender: Male [employer] Vendor: : [id number] Requested By: Order Number: [id number] Reading MD: Rayray Mesa Measurements Intervals [place] Rate: 90 P: 50 CO: 168 QRS: 13 QRSD: 90 T: 17 QT: 350 QTc: 428 Interpretive Statements Normal sinus rhythm Electronically Signed On 06-16-2024 9:16:25 PDT by Rayray Mesa
--- NOTE | 2024-06-12 14:43 | DI.CT.S_ITS ---
PROCEDURE: CT ANGIO CHEST PE PROTOCOL INDICATIONS: + DVT, tachycardia TECHNIQUE: After the administration of intravenous contrast, 2 mm thick sections acquired from the pulmonary apices to the posterior costophrenic angles. 3-dimensional maximum intensity projection (MIP) coronal and sagittal reformats were then acquired through the thorax. For radiation dose reduction, the following was used: automated exposure control, adjustment of mA and/or kV according to patient size. COMPARISON: [facility], CT, CT CHEST ABD PEL W CON, 04/25/2024, 16:15. [facility], CT, CT ABDOMEN PELVIS W CON, 06/12/2024, 15:53. FINDINGS: Image quality: Diagnostic. Pulmonary arteries: Pulmonary arteries are normal in size, and demonstrate no intraluminal filling defects to suggest central pulmonary embolism. Lower Neck: No enlarged lymph nodes. Thyroid: No thyroid nodules which require sonographic follow up, per consensus guidelines. Axillae: No enlarged lymph nodes. Chest Wall: Elevation of the left hemidiaphragm. Bones: No acute fractures. No aggressive appearing lytic or blastic osseous lesions. Moderate multilevel degenerative changes. Intact sternotomy wires. Lungs and Pleura: No pneumothorax or pleural effusions. Increased left lower lobe hypodense consolidation compared to prior CT dated April 25, 2024 (). Heart: Heart size is enlarged, stable. No pericardial effusion. Postsurgical changes of coronary bypass. Thoracic Vessels: No aortic aneurysm. Mediastinum and Monique: No enlarged lymph nodes. Esophagus: No wall thickening. No hiatal hernia. Upper Abdomen: Please see same day CT abdomen and pelvis for additional findings. IMPRESSION: 1. No pulmonary embolus. 2. Elevation of the left hemidiaphragm which may be secondary to phrenic nerve dysfunction, as before. Increased hypodense consolidation in the left lower lobe, new compared to prior compatible with aspiration and/or pneumonia with an underlying atelectatic component. 3. Postsurgical changes of CABG. Stable cardiomegaly. Dictated by: Donis Storm M.D. on 06/12/2024 at 16:44 Approved by: Donis Storm M.D. on 06/12/2024 at 16:50
[2024-06-12 15:21] LABS: Add Manual Diff / Slide Review NO; Basophils Absolute Auto 0 /uL (0-100); Basophils Percent Auto 0.6 % (0-2); Eosinophils Absolute Auto 300 /uL (0-450); Eosinophils Percent Auto 3.7 % (2-4); Hematocrit 38.9 % (41-53); Lymphocytes Absolute Auto 1500 /uL (1100-4500); Lymphocytes Percent Auto 20.1 % (25-40); Mean Corpuscular HGB Conc 33.4 % (30-36); Mean Corpuscular Hemoglobin 28.6 PG (26-34); Mean Corpuscular Volume 85.7 fL (80-100); Monocytes Absolute Auto 700 /uL (0-900); Monocytes Percent Auto 9.8 % (3-14); Neutrophils Absolute Auto 4900 /uL (1500-7000); Neutrophils Percent Auto 65.8 % (50-75); Platelet Count 288 X10^3/uL (150-400); Red Blood Cell Count 4.54 X10^6/uL (4.5-5.9); Red Cell Distribution Width 15.5 % (11.6-14.8); White Blood Cell Count 7.4 X10^3/uL (4.5-11.0)
[2024-06-12 15:38] LABS: Alanine Aminotransferase 25 IU/L (<50); Albumin 4.8 g/dL (3.5-5.0); Albumin Globulin Ratio 1.4 (1.0-2.8); Alkaline Phosphatase 81 U/L (38-126); Aspartate Aminotransferase 26 IU/L (17-59); BUN Creatinine Ratio 27.7 (6-22); Bilirubin Total 0.5 mg/dL (0.2-1.3); Blood Urea Nitrogen 26 mg/dL (9-20); Calcium 9.9 mg/dL (8.4-10.2); Carbon Dioxide 22 mmol/L (22-32); Chloride 105 mmol/L (98-107); Estimated Glomerular Filt Rate > 60 mL/min (>60); Globulin 3.5 g/dL (1.7-4.1); Glucose 82 mg/dL (80-110); HEMOLYSIS < 15 (0-50); Potassium 4.2 mmol/L (3.4-5.1); Sodium 140 mmol/L (137-145); Total Protein 8.3 g/dL (6.3-8.2)
--- NOTE | 2024-06-12 15:43 | DI.CT.S_ITS ---
PROCEDURE: CT ABDOMEN PELVIS W CON INDICATIONS: + DVT, recommended CT venogram abdomen/pelvis TECHNIQUE: After the administration of intravenous contrast, axial sections acquired from the lung bases to the pubic symphysis. Coronal and sagittal reformats were performed. For radiation dose reduction, the following was used: automated exposure control, adjustment of mA and/or kV according to patient size. COMPARISON: [facility], CT, CT CHEST ABD PEL W CON, 04/25/2024, 16:15. [facility], CT, CT ANGIO CHEST PE PROTOCOL, 06/12/2024, 15:53. [facility], US, US PERIPH VENOUS LOW EXTREM LT, 06/12/2024, 14:07. FINDINGS: Image quality: Diagnostic. Lower Chest: Elevation of the left hemidiaphragm with left basilar atelectasis. Post CABG changes. ABDOMEN: Liver: No solid mass. Gallbladder: No radiopaque gallstones or wall thickening. Biliary ducts: No biliary dilation. Pancreas: No ductal dilation. Spleen: Size is within normal limits. Adrenal Glands: No adrenal nodules. Kidneys and Ureters: No hydronephrosis. No solid mass. No complex renal cystic lesion which requires follow up. Stomach and Bowel: Status post partial colectomy with surgical anastomosis in the midline upper abdomen. No signs of small bowel obstruction. Peritoneum: No abnormal intraperitoneal fluid. No free air. Ventral Wall: No significant ventral hernia. Abdominal Nodes: No retroperitoneal or mesenteric adenopathy by size criteria. Vessels: Aorta and inferior vena cava are normal in size. Filling defect is seen within the left common femoral vein extending into the femoral vein, consistent with known deep venous thrombosis. No involvement of the external iliac vein is seen. The remaining visualized venous structures are intact. PELVIS: Pelvic Organs: Unremarkable. Bladder: No bladder wall thickening, accounting for underdistention. Pelvic Nodes: No enlarged lymph nodes. Miscellaneous: No inguinal hernias are seen. Bones: No aggressive osseous abnormality. IMPRESSION: Filling defect is seen within the left common femoral vein and femoral vein consistent with known deep venous thrombosis. No involvement of the pelvic veins or IVC. Approved by: Roderick Paige M.D. on 06/12/2024 at 17:12
== END 2024-06-12 18:48 | disposition home or self-care (01) ==
PROVIDERS: Emergency Provider Physician Assistant Medical; PCP Family Medicine
DX: I82.412 Acute embolism and thrombosis of left femoral vein (principal); R06.02 Shortness of breath; R00.0 Tachycardia, unspecified
CPT/HCPCS: 36415; 71275; 74177; 80053; 85025; 93005; 93971; 99283; 99284; Q9967

== ENCOUNTER → 2024-07-01 09:04 | Outpatient (CLI) | payer BC, SELFPAY ==
[2024-05-07 14:14] VITALS: BMI 28.1
[2024-07-01 11:10] LABS: Cholesterol 173 mg/dL (140-199); HDL Cholesterol 36 mg/dL (40-60); LDL Cholesterol Calculated 98 mg/dL (<100); Triglycerides 194 mg/dL (35-150)
[2024-07-01 11:39] LABS: Hemoglobin A1C% w Est Avg Glu 5.8 % (4.0-6.0)
== END ==
PROVIDERS: PCP Family Medicine; Referring Provider Family Medicine; Visit Provider Family Medicine
DX: R73.03 Prediabetes (principal); E78.00 Pure hypercholesterolemia, unspecified
CPT/HCPCS: 36415; 80061; 83036

== ENCOUNTER 2024-09-23 12:08 | Day surgery (SDC) | payer BC, SELFPAY ==
[2024-05-07 14:14] VITALS: BMI 28.1
--- NOTE | 2024-09-23 | PATH_ITS ---
[facility] Accession Number: [id number] No. of containers..02 Tissue . 01 Material submitted: . PART A: colon - ASCENDING COLON POLYP PART B: colon - ANASTAMOSIS BIOPSY . 01 Diagnosis: A. ASCENDING COLON POLYP: Tubular adenoma. . B. COLON ANASTOMOSIS, BIOPSY: Colonic mucosa with mild crypt architectural distortion and focal erosion, consistent with anatomotic site changes. Negative for granulomas, dysplasia or malignancy. Additional step sections examined. MRV 09/25/2024 1751 Local . 01 Comment: B. As part of routine quality assurance assistant, Dr. Candelario has reviewed part B of this case and agrees there is no evidence of neoplasm. . 01 Electronically signed: . Luther Huber MD, PhD, Pathologist NPI- [id number] . 01 Gross description: . A. Received in formalin with two patient identifiers and ascending colon polyps, are multiple villalta soft tissue fragments aggregating to 1.2 x 0.5 x 0.2 cm. Filtered and submitted in A1. B. Received in formalin with two patient identifiers and anastomosis biopsy, are two villalta soft tissue fragments, 0.2 to 0.4 cm in greatest dimension, submitted in B1. ([id number]) /MRV 09/24/2024 1407 Local . 01 Pathologist provided ICD-10: Z85.038, D12.2 . 01 CPT . 239722, 753877 Specimen Comment: A courtesy copy of this report has been sent to [phone] Performed at: [address] [facility] [address], [place], [place] [id number] MD Bj Candelario MD Phone: [phone]
--- NOTE | 2024-09-23 12:25 | PM.HP.1 ---
History of Present Illness History of Present Illness Date Patient Seen: 09/23/24 Time Patient Seen: 12:25 Chief complaint: SDC Narrative: 64-year-old man with a history of colon cancer T3 N0 status post transverse colectomy April 2024. He had a colonoscopy preoperatively which demonstrated a near obstructing lesion and the entirety of the colonoscopy could not be completed. Overall he is feeling fairly well today. Recently discontinued anticoagulation for history of DVT. [facility] Medical History (Updated 07/01/24 @ 09:31 by Keturah Souza MD) Migraines (Unknown) Coronary artery disease (1997) Myocardial infarction (~1997) Surgical History (Updated 05/06/24 @ 11:58 by Lilli Hunt RN) Hx of colonoscopy (04/25/24) Hx of left mastectomy (1979) History of breast surgery Hx of vasectomy (1996) History of three vessel coronary artery bypass (~1997) Family History Father Stroke Myocardial infarction Mother Alzheimer's disease Sister Diabetes mellitus Sister Diabetes mellitus Sister Diabetes mellitus Grandmother Alzheimer's disease Grandmother Alzheimer's disease Social History household members: spouse and children 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, 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) Smoking Status: Never smoker second hand exposure: No alcohol intake: never substance use type: does not use Meds Home Medications and Allergies Home Medications Medication Instructions Recorded Confirmed Type fexofenadine 180 mg tablet 180 mg PO DAILY 05/07/24 07/01/24 History acetaminophen 500 mg capsule 1,000 mg (2 x 500 mg) PO Q6H PRN 05/10/24 07/01/24 Rx pain #60 caps ibuprofen 200 mg tablet 400 mg (2 x 200 mg) PO Q6H #60 tabs 05/10/24 07/01/24 Rx ezetimibe 10 mg tablet (Zetia) 10 mg PO DAILY #90 tabs 07/01/24 07/01/24 Rx metoprolol succinate 50 mg 25 mg (1/2 x 50 mg) PO DAILY #90 07/01/24 09/23/24 Rx tablet,extended release 24 hr tabs pitavastatin calcium 4 mg tablet 4 mg PO DAILY #90 tabs 07/01/24 07/01/24 Rx (Livalo) ezetimibe 10 mg tablet 10 mg PO DAILY 09/23/24 09/23/24 History Allergies Allergy/AdvReac Type Severity Reaction Status Date / Time No Known Drug Allergies Allergy Verified 09/23/24 12:18 Exam Narrative Exam Narrative: General adult man alert oriented no acute distress Chest nonlabored respiration Extremities warm well perfused Assessment & Plan Assessment and plan (1) Colon cancer: Qualifiers: Colon location: splenic flexure Qualified Code(s): C18.5 - Malignant neoplasm of splenic flexure Status: Acute Assessment & Plan narrative: 64-year-old man history of colon cancer T3N0 of transverse colon status post colectomy April 2024 here for surveillance. Preoperative colonoscopy incomplete secondary to obstructing tumor. Overview of the procedure including its risks benefits alternatives reviewed. He provides his informed consent to proceed. Time-Based Coding :: [TOTAL MINUTES] spent with patient and on the chart (including review of chart, obtaining history, exam, reviewing outside data, placing orders, documenting exam and treatment plan, and counseling patient) on [DATE].
[2024-09-23 12:33] VITALS: BP 125/84; PULSE 101; RESP 20; TEMP 36.1; O2SAT 99
[2024-09-23 13:19] VITALS: BP 99/55; PULSE 88; RESP 12; TEMP 36.6; O2SAT 92
[2024-09-23 13:24] VITALS: BP 101/57; PULSE 85; RESP 12; O2SAT 92
--- NOTE | 2024-09-23 13:25 | P.OP.COLON_ITS ---
Operative Date/Time/Diagnoses Date of procedure: 09/23/24 Time of procedure: 13:26 Pre-op diagnosis: History of Colon cancer Post-op diagnosis: other (Colonic polyp x1) Procedure & Clinicians Study performed: Screening colonoscopy Same procedure as scheduled: Yes Indications: 64-year-old man status post transverse colectomy April 2024 for an obstructing lesion. Final pathology T3N0. Surgeon: Jose Santiago Procedure Notes Procedure in detail: The history and physical was performed/updated and the patient is ASA class is 2. The procedure was discussed in detail with the patient. Potential risks complications including infection, bleeding, missed diagnosis, perforation, need for surgery, and were explained. Their questions were answered and informed consent was obtained. Patient was brought to the procedure room and placed standard monitoring equipment. The patient's vital signs were monitored continuously throughout the entire procedure. Prior to starting time-out was performed. The patient was placed in the left lateral recumbent position. Procedural sedation was administered by anesthesia. Examination began with a thorough inspection of the perianal area there was no evidence of fissures, fistulae, external hemorrhoids or cutaneous malignancy. The colonoscopy scope was then placed into the anal canal and was advanced to the cecum, which was identified by the ileocecal valve, the appendiceal orifice and the confluence of the taenia. The scope was then slowly withdrawn examining colon thoroughly in all directions, irrigating it of any residual stool. The scope was retroflexed within the rectum The patient tolerated the procedure well. They will be discharged once criteria are met. The prep was of good/excellent quality. The withdrawl time was 7 minutes. FINDINGS * 3 mm polyp within the ascending colon removed with Jumbo forceps. * Slight inflammation at the anastomosis. Biopsy of the anastomosis performed with forceps Specimen(s): other (Anastomotic biopsy, ascending colon polyp) Impression: Colonic polyp x1 Post-procedure Recommendations: Colonoscopy in 1 year (History of colon cancer) Disposition: same day surgery
[2024-09-23 13:30] VITALS: BP 95/59; PULSE 98; RESP 12; TEMP 36.7; O2SAT 97
[2024-09-23 13:34] VITALS: BP 98/50; PULSE 93; RESP 9; TEMP 36.7; O2SAT 99
== END 2024-09-23 13:53 | disposition home or self-care (01) ==
PROVIDERS: PCP Family Medicine; Referring Provider Surgery; Visit Provider Surgery
PROC: 0DJD8ZZ Inspection of Lower Intestinal Tract, Via Natural or Artificial Opening Endoscopic (ICD-10-PCS; CPT 45378; principal; 2024-09-23 13:15)
DX: Z12.11 Encounter for screening for malignant neoplasm of colon (principal); Z08 Encounter for follow-up examination after completed treatment for malignant neoplasm; Z85.038 Personal history of other malignant neoplasm of large intestine; Z90.49 Acquired absence of other specified parts of digestive tract; D12.2 Benign neoplasm of ascending colon
CPT/HCPCS: 45380; J2704

== ENCOUNTER → 2025-02-19 09:51 | Outpatient (CLI) | payer BC, SELFPAY ==
[2024-05-07 14:14] VITALS: BMI 28.1
== END ==
PROVIDERS: PCP Family Medicine; Referring Provider Family Medicine; Visit Provider Family Medicine
DX: R06.09 Other forms of dyspnea (principal)
CPT/HCPCS: 94060; 94726; 94729